=== PATIENT | female | born 1930 | race Caucasian/White ===

== ENCOUNTER → 2018-10-05 | Outpatient (CLI) | payer MEDICARE, OTHER ==
[~2018-10-05] MED LIST: PROP10TA PO; REGADENOSON 0.4 MG/5 ML DISP.SYRIN. IV ONE
--- NOTE | 2018-10-05 10:58 | CARD ---
MR#: [id number] Date of Study: 10/05/2018 Ordering Physician: STAN CORNELIUS, Referring Physician: STAN CORNELIUS Tech: Gloria Mcgrath RDCS APPROVED REPORT EXAM: Two-dimensional and M-mode echocardiogram with Doppler and color Doppler. Other Information Quality : Good INDICATION Chest Pain 2D DIMENSIONS RVDd2.5 (2.9-3.5cm)Left Atrium(2D)4.1 (1.6-4.0cm) IVSd1.2 (0.7-1.1cm)Aortic Root(2D)2.3 (2.0-3.7cm) LVDd4.0 (3.9-5.9cm)LVOT Diameter2.1 (1.8-2.4cm) PWd1.2 (0.7-1.1cm)LVDs2.2 (2.5-4.0cm) FS (%) 30.0 %SV53.9 ml LVEF(%)60.0 (>50%) Aortic Valve AoV Peak Reggie.92.9cm/sAoV VTI20.5cm AO Peak GR.3.5mmHgLVOT Peak Reggie.82.6cm/s LVOT VTI 21.02cmAO Mean GR.2mmHg JOE (VMAX)3.19vg5DMV (VTI)3.46cm2 Mitral Valve MV E Hkvebsqu00.1cm/sMV DECEL [id number] MV A Vvrjrlwc75.8cm/sMV FSQ61wk E/A Ratio0.7MVA (PHT)3.52cm2 TDI E/Medial E'15.6 Tricuspid Valve TR P. Mueuuaip281fv/sRAP YRJRHOBJ5luXl TR Peak Gr.81bsKvCJNI57zuXn Pulmonary Vein S1 Tpwgcvrl00.1cm/sD2 Deudngir41.8cm/s LEFT VENTRICLE The left ventricle is normal size. There is mild concentric left ventricular hypertrophy. The left ve ntricular systolic function is normal. The Ejection Fraction is 55-60%. There is normal LV segmental wall motion. Transmitral Doppler flow pattern is Grade I-abnormal relaxation pattern. RIGHT VENTRICLE The right ventricle is normal size. The right ventricular systolic function is normal. ATRIA The left atrium is mildly dilated. The right atrium size is normal. The interatrial septum is intact with no evidence for an atrial septal defect or patent foramen ovale as noted on 2-D or Doppler imagi ng. AORTIC VALVE The aortic valve is calcified but opens well. Doppler and Color Flow revealed no significant aortic r egurgitation. There is no significant aortic valvular stenosis. MITRAL VALVE The mitral valve is calcified but opens well. There is no evidence of mitral valve prolapse. There is no mitral valve stenosis. Doppler and Color-flow revealed mild mitral regurgitation. TRICUSPID VALVE The tricuspid valve is normal in structure and function. Doppler and Color Flow revealed mild tricusp id regurgitation. There is mild pulmonary hypertension. The PA pressure was estimated at 35 mmHg. The re is no tricuspid valve stenosis. PULMONIC VALVE The pulmonic valve is not well visualized. Doppler and Color Flow revealed mild pulmonic valvular reg urgitation. There is no pulmonic valvular stenosis. GREAT VESSELS The aortic root is normal in size. The ascending aorta is normal in size. The IVC is normal in size a nd collapses >50% with inspiration. PERICARDIAL EFFUSION There is no evidence of significant pericardial effusion. Critical Notification Critical Value: No <Conclusion> The left ventricular systolic function is normal. The Ejection Fraction is 55-60%. There is normal LV segmental wall motion. Transmitral Doppler flow pattern is Grade I-abnormal relaxation pattern. Mild mitral regurgitation. Mild tricuspid regurgitation. The PA pressure was estimated at 35 mmHg. There is no evidence of significant pericardial effusion. Signed by : Stan Cornelius, Electronically Approved : 10/05/2018 10:58:16
--- NOTE | 2018-10-05 13:37 | RAD ---
MR#: [id number] Date of Study: 10/05/2018 Ordering Physician: STAN CORNELIUS, Referring Physician: VÍCTOR LACY Tech: BJ Calles ARRT (R) (N) APPROVED REPORT Test Type: Pharmacological Stress Nurse/Tech: KARY Braun Test Indications: chest pain Cardiac History: HTN Medications: See Electronic Medical Record Medical History: See Electronic Medical Record Resting ECG: SR BBB Resting Heart Rate: 61 bpm Resting Blood Pressure: 174/69mmHg Pretest Chest Pain: None Nurse/Tech Notes Lungs CTA, S1S2 Consent: The procedure was explained to the patient in lay terms. Informed consent was witnessed. Rubens eout was entered into [employer]. History and Stress Test performed by Miguel Montesinos RN Pharm. Details Pharmacologic stress testing was performed using 0.4mg per 5ml of regadenoson given intravenously ove r 7-10 seconds. Stress Symptoms No chest pain or symptoms. POST EXERCISE Reason for Termination: Infusion complete Max HR: 142 bpm Max Blood Pressure: 186/77mmHg Blood Pressure response to exercise: Normal blood pressure response during stress. Heart Rate response to exercise: normal response Chest Pain: No. Arrhythmia: No. ST Change: No. INTERPRETATION Stress EKG Conclusion: Baseline EKG showed sinus rhythm with LBBB. No ischemic changes at peak stres s. No arrhythmias. Imaging Protocol IMAGE PROTOCOL: Rest Tc-99m/stress Tc-99m 1 day Rest: Stress: Viability: Radiopharm.Tc99m AkmkocghjTj83o Sestamibi Wnog52tGc 33mCi Img Date 10/05/2018 10/05/2018 Rest Admin Site:IV - Right AntecubitalAdministrator:BJ Calles ARRT (R)(N) Stress Admin Site: IV - Right AntecubitalAdministrator: RT Arnie (R)(N) STRESS DATA End Diast. Vol.46.0mlLVEDV index BSA28.0ml End Syst. Vol.10.0mlLVESV index BSA6.0ml Myocardial Mass94.0gEject. Awassqvj39.0% Stress Scores Regional WT1.00Summed WT9.00 Regional WM0.00Summed WM1.00 Study quality was good. Left Ventricular size was Normal at Rest and Stress. Lung uptake was . Left Ventricular ejection fraction is 72%. The rest and stress images show normal perfusion, normal contraction and thickening. LV Perf. Quant 17 Seg. SSS5.00 17 Seg. SRS0.00 17 Seg. SDS5.00 Stress Defect Extent (% LAD)0.00Rest Defect Extent (% LAD)0.00Rev. Defect Extent (% LAD)0.00 Stress Defect Extent (% LCX) 53.80Rest Defect Extent (% LCX)6.30Rev. Defect Extent (% LCX)53.80 Stress Defect Extent (% RCA)0.00Rest Defect Extent (% RCA)0.00Rev. Defect Extent (% RCA)0.00 Stress Defect Extent (% RADHA)10.40Rest Defect Extent (% RADHA)1.10Rev. Defect Extent (% RADHA)10.40 Conclusion 1. Regadenoson cardioisotope stress test did not show any evidence of ischemia or infarct. 2. Normal left ventricular systolic function with ejection fraction calculated at 72%. 3. Low risk for cardiac events. Signed by : Stan Cornelius, Electronically Approved : 10/05/2018 13:37:03
== END | disposition home or self-care (01) ==
LOC: NM 10:27
PROVIDERS: ATTEND Internal Medicine Cardiovascular Disease
DX: I08.8 Other rheumatic multiple valve diseases (principal); I70.0 Atherosclerosis of aorta
CPT/HCPCS: 78452; 93017; 93306; 96374; A9500; J2785

== ENCOUNTER 2019-03-24 13:48 | Inpatient (IN) | payer MEDICARE, OTHER ==
[~2019-03-24] VITALS: Ht 152.4 cm; Wt 68.9 kg
[~2019-03-24 13:48] MED LIST changes: +AMLO2.5T5 PO; +CYAN-25 PO; +DOXY100T PO; +FEXO1TAB31 PO; +FLEC50TA PO; +LEVO50TA PO; +LOSA-73 PO; +LOSA100T14 PO; +PROP80CA12 PO; -REGADENOSON 0.4 MG/5 ML DISP.SYRIN. IV ONE; +WARF2.5T71 PO; +WARF3TAB50 PO
--- NOTE | 2019-03-24 14:11 | PHYS DOC ---
Adult General Chief Complaint Chief Complaint: SHORTNESS OF BREATH HPI HPI Patient is a 88 year old presents to the ER with shortness of breath this been ongoing and getting worse for several weeks. The patient states that she was recently admitted to the hospital and discharged on Thursday and diagnosed a pneumonia. The patient states she's also nauseous and has shortness of breath. Patient also states she's been having blood in her sputum. Patient has a history of A. fib and is on warfarin. Review of Systems Review of Systems Constitutional: Denies fever or chills [] Eyes: Denies change in visual acuity, redness, or eye pain [] HENT: Denies nasal congestion or sore throat [] Respiratory: Reports cough and shortness of breath. Also reports coughing up blood. Cardiovascular: No additional information not addressed in HPI [] GI: Denies abdominal pain, nausea, vomiting, bloody stools or diarrhea [] : Denies dysuria or hematuria [] Musculoskeletal: Denies back pain or joint pain [] Integument: Denies rash or skin lesions [] Neurologic: Denies headache, focal weakness or sensory changes [] Endocrine: Denies polyuria or polydipsia [] Complete systems were reviewed and found to be within normal limits, except as documented in this note. Current Medications Current Medications Current Medications Medications (Trade) Dose Ordered Sig/Vannesa Start Time Stop Time Status Last Admin Dose Admin Albuterol/ Ipratropium (Duoneb) 3 ml 1X ONCE 03/24/19 14:15 03/24/19 14:16 DC 03/24/19 14:21 3 ML Info (CONTRAST GIVEN -- Rx MONITORING) 1 each PRN DAILY PRN 03/24/19 16:00 03/26/19 15:59 Iohexol (Omnipaque 350 Mg/ml) 70 ml 1X ONCE 03/24/19 16:00 03/24/19 16:01 Methylprednisolone Sodium Succinate (SOLU-Medrol 125MG VIAL) 62.5 mg 1X ONCE 03/24/19 14:15 03/24/19 14:16 DC 03/24/19 15:17 62.5 MG Ondansetron HCl (Zofran) 4 mg 1X ONCE 03/24/19 14:15 03/24/19 14:16 DC 03/24/19 15:17 4 MG Allergies Allergies Allergies Coded Allergies Type Severity Reaction Last Updated Verified Penicillins Allergy Intermediate 03/19/19 Yes heparin Allergy Intermediate 03/19/19 Yes morphine Allergy Intermediate 03/19/19 Yes Physical Exam Physical Exam Constitutional: Well developed, well nourished, no acute distress, non-toxic appearance. [] HENT: Normocephalic, atraumatic, bilateral external ears normal, oropharynx moist, no oral exudates, nose normal. [] Eyes: PERRLA, EOMI, conjunctiva normal, no discharge. [] Neck: Normal range of motion, no tenderness, supple, no stridor. [] Cardiovascular:Heart rate regular rhythm, no murmur [] Lungs & Thorax: Bilateral breath sounds are diminished and have rhonchi. Abdomen: Bowel sounds normal, soft, no tenderness, no masses, no pulsatile mas ses. [] Skin: Warm, dry, no erythema, no rash. [] Back: No tenderness, no CVA tenderness. [] Extremities: No tenderness, no cyanosis, no clubbing, ROM intact, no edema. [] Neurologic: Alert and oriented X 3, normal motor function, normal sensory function, no focal deficits noted. [] Psychologic: Affect normal, judgement normal, mood normal. [] Current Patient Data Vital Signs Vital Signs Date Time Temp Pulse Resp B/P (MAP) Pulse Ox O2 Delivery O2 Flow Rate FiO2 03/24/19 14:40 92 Nasal Cannula 3.0 03/24/19 14:32 98.1 53 18 136/66 (89) 98.1 Lab Values Laboratory Tests Test 03/24/19 14:38 03/24/19 15:05 O2 Saturation 90 % (92-99) L Arterial Blood pH 7.31 (7.35-7.45) L Arterial Blood pCO2 at Patient Temp 39 mmHg (35-46) Arterial Blood pO2 at Patient Temp 64 mmHg (65-108) L Arterial Blood HCO3 19 mmol/L (21-28) L Arterial Blood Base Excess -6 mmol/L (-3-3) L FiO2 32 White Blood Count 10.5 x10^3/uL (4.0-11.0) Red Blood Count 4.15 x10^6/uL (3.50-5.40) Hemoglobin 13.4 g/dL (12.0-15.5) Hematocrit 39.0 % (36.0-47.0) Mean Corpuscular Volume 94 fL (79-100) Mean Corpuscular Hemoglobin 32 pg (25-35) Mean Corpuscular Hemoglobin Concent 34 g/dL (31-37) Red Cell Distribution Width 14.1 % (11.5-14.5) Platelet Count 213 x10^3/uL (140-400) Neutrophils (%) (Auto) 75 % (31-73) H Lymphocytes (%) (Auto) 19 % (24-48) L Monocytes (%) (Auto) 5 % (0-9) Eosinophils (%) (Auto) 0 % (0-3) Basophils (%) (Auto) 1 % (0-3) Neutrophils # (Auto) 7.9 x10^3/uL (1.8-7.7) H Lymphocytes # (Auto) 2.0 x10^3/uL (1.0-4.8) Monocytes # (Auto) 0.5 x10^3/uL (0.0-1.1) Eosinophils # (Auto) 0.0 x10^3/uL (0.0-0.7) Basophils # (Auto) 0.1 x10^3/uL (0.0-0.2) Prothrombin Time 27.6 SEC (11.7-14.0) H Prothrombin Time INR 2.6 (0.8-1.1) H Activated Partial Thromboplast Time 36 SEC (24-38) D-Dimer (Dina) 0.58 ug/mlFEU (0.00-0.50) H Sodium Level 135 mmol/L (136-145) L Potassium Level 4.7 mmol/L (3.5-5.1) Chloride Level 104 mmol/L (98-107) Carbon Dioxide Level 25 mmol/L (21-32) Anion Gap 6 (6-14) Blood Urea Nitrogen 21 mg/dL (7-20) H Creatinine 1.2 mg/dL (0.6-1.0) H Estimated GFR (Cockcroft-Gault) 42.3 BUN/Creatinine Ratio 18 (6-20) Glucose Level 211 mg/dL (70-99) H Lactic Acid Level 1.6 mmol/L (0.4-2.0) Calcium Level 9.6 mg/dL (8.5-10.1) Magnesium Level 1.8 mg/dL (1.8-2.4) Total Bilirubin 1.2 mg/dL (0.2-1.0) H Aspartate Amino Transferase (AST) 39 U/L (15-37) H Alanine Aminotransferase (ALT) 43 U/L (14-59) Alkaline Phosphatase 74 U/L (46-116) Troponin I Quantitative < 0.017 ng/mL (0.000-0.055) PI-Ykb-Q-Type Natriuretic Peptide 4564 pg/mL (0-449) H Total Protein 7.1 g/dL (6.4-8.2) Albumin 3.1 g/dL (3.4-5.0) L Albumin/Globulin Ratio 0.8 (1.0-1.7) L Laboratory Tests 03/24/19 15:05 Laboratory Tests 03/24/19 15:05 EKG EKG EKG interpreted by Dr. aMdeleine Person with rate of 55, LBBB, left axis deviation. No old ekg's to compare it to.[] Radiology/Procedures Radiology/Procedures [] Course & Med Decision Making Course & Med Decision Making Pertinent Labs and Imaging studies reviewed. (See chart for details) Will get chest x-ray, labs, ABG, EKG, and give breathing treatment. ABG shows Ph of 7.314, Will put on Venturi mask. Discussed case with Dr. Ferrer who saw patient at bedside and accepted admission at 1556. Will give 20 mg of lasix IV on admission. Dragon Disclaimer Dragon Disclaimer This electronic medical record was generated, in whole or in part, using a voice recognition dictation system. Departure Departure Impression: Primary Impression: Shortness of breath Additional Impression: Acute exacerbation of CHF (congestive heart failure) Disposition: 09 ADMITTED INPATIENT Admitting Physician: Baldo Ferrer Condition: GUARDED Referrals: BALDO FERRER MD (PCP) Problem Qualifiers Additional Impression: Acute exacerbation of CHF (congestive heart failure) Heart failure type: unspecified Qualified Codes: I50.9 - Heart failure, unspecified BALDO LOPES MARKETING REPORTING ANALYST Mar 24, 2019 14:11
[2019-03-24] MEDS ORDERED: IPRATRPIUM/ALBUTEROL 0.5/2.5MG 3 ML NEBU. NEB ONE (14:15)
[2019-03-24] MEDS ORDERED: ONDANSETRON PF 4 MG/2 ML VIAL. IV ONE (14:15)
[2019-03-24] MEDS ORDERED: methylPREDNISolone SOD SUCC PF 125 MG/2 ML VIAL. IV ONE (14:15)
--- NOTE | 2019-03-24 14:23 | EKG ---
[facility] [address] [place] [address] Test Date: 2019-03-24 Test Time: 14:16:49 Pat Name: VALENTINO MORA Department: Room: Gender: F Studio Engineer: : [id number] Requested By: RAKEL LOPES Order Number: [id number] Reading MD: Measurements Intervals [place] Rate: 55 P: [place]: QRS: -38 QRSD: 218 T: 106 QT: 554 QTc: 532 Interpretive Statements ATRIAL FIBRILLATION ABNORMAL LEFT AXIS DEVIATION LEFT BUNDLE BRANCH BLOCK ABNORMAL ECG No previous ECG available for comparison
[2019-03-24 14:41] LABS: BASE EXCESS ABG -6 mmol/L (-3-3); HCO3 ABG 19 mmol/L (21-28); PCO2 ABG 39 mmHg (35-46); PO2 ABG 64 mmHg (65-108); SAT O2 ABG 90 % (92-99)
[2019-03-24 14:42] LABS: FIO2 ABG 32
[2019-03-24 15:13] LABS: BASO # 0.1 x10^3/uL (0.0-0.2); BASO % 1 % (0-3); EOS % 0 % (0-3); HEMOGLOBIN 13.4 g/dL (12.0-15.5); LYMPH % 19 % (24-48); MEAN CORPUSCULAR HEMOGLOBIN 32 pg (25-35); MEAN CORPUSCULAR HGB CONC 34 g/dL (31-37); MEAN CORPUSCULAR VOLUME 94 fL (79-100); MONO # 0.5 x10^3/uL (0.0-1.1); MONO % 5 % (0-9); NEUT # 7.9 x10^3/uL (1.8-7.7); NEUT % 75 % (31-73); PLATELET COUNT 213 x10^3/uL (140-400); RED BLOOD COUNT 4.15 x10^6/uL (3.50-5.40); RED CELL DISTRIBUTION WIDTH 14.1 % (11.5-14.5); WHITE BLOOD COUNT 10.5 x10^3/uL (4.0-11.0)
[2019-03-24 15:25] LABS: CALCIUM 9.6 mg/dL (8.5-10.1); CREATININE 1.2 mg/dL (0.6-1.0); GFR 42.3; POTASSIUM 4.7 mmol/L (3.5-5.1)
[2019-03-24 15:26] LABS: PROTHROMBIN TIME PATIENT 27.6 SEC (11.7-14.0)
[2019-03-24 15:30] LABS: D-DIMER 0.58 ug/mlFEU (0.00-0.50)
[2019-03-24 15:31] LABS: ALBUMIN 3.1 g/dL (3.4-5.0); ALBUMIN/GLOBULIN RATIO 0.8 (1.0-1.7); TOTAL BILIRUBIN 1.2 mg/dL (0.2-1.0); TOTAL PROTEIN 7.1 g/dL (6.4-8.2)
--- NOTE | 2019-03-24 15:42 | RAD ---
PORTABLE CHEST 1V History: Shortness of breath Comparison: March 18, 2019 Findings: Low lung volumes with patchy bibasilar opacities. Mild interstitial thickening. Small bilateral pleural effusions. No pneumothorax. Unchanged heart size. Impression: 1. Small bilateral pleural effusions. 2. Increased mild interstitial thickening and basilar opacities, may indicate early pulmonary edema. Electronically signed by: Kevin Lundberg DO (03/24/2019 3:39 PM) [id number]
[2019-03-24] MEDS ORDERED: FUROSEMIDE 20 MG/2 ML VIAL. IVP ONE (16:00)
[2019-03-24] MEDS ORDERED: CONTRAST GIVEN. MC PRN (16:00)
[2019-03-24] MEDS ORDERED: IOHEXOL 350 MG/ML 100 ML VIAL. IV ONE (16:00)
[2019-03-24] MEDS ORDERED: ACETAMINOPHEN 325 MG TABLET. PO PRN (16:30)
--- NOTE | 2019-03-24 16:30 | RAD ---
Examination: CT angiography chest HISTORY: History of elevated d-dimer, hemoptysis COMPARISON: CT of chest without contrast from 03/19/2019 TECHNIQUE: Axial CT and radiographic images of chest were performed with IV contrast. Coronal and sagittal 3-D MIP reformats are performed Exposure: One or more of the following individualized dose reduction techniques were utilized for this examination: 1. Automated exposure control 2. Adjustment of the mA and/or kV according to patient size 3. Use of iterative reconstruction technique FINDINGS: The central airways are patent. Mild cardiomegaly. Moderate aortic atherosclerosis No evidence of filling defect identified in the main pulmonary arterial trunk and right and left main pulmonary arteries and the visualized lobar branches of the pulmonary arteries. There is a distal segmental branches of the pulmonary arteries is limited. Bilateral pleural effusions , right greater than left. Patchy bilateral lung airspace opacities likely atelectasis or infiltrates. Mild prominent bilateral hilar lymph nodes. There is extension of contrast into the IVC and hepatic veins. The visualized liver, spleen, adrenals grossly appears unremarkable. Moderate degenerative changes thoracic spine. IMPRESSION: 1. No evidence of central pulmonary embolism. The evaluation of the distal segmental branches of the pulmonary arteries is limited. 2. Bilateral pleural effusions , right greater than left, with patchy airspace opacities bilateral airspace opacities likely atelectasis or infiltrates. Mild congestive changes. 3. Mild bilateral hilar lymph nodes probably reactive. Electronically signed by: Nicho York MD (03/24/2019 4:27 PM) [place] [id number]
--- NOTE | 2019-03-24 16:43 | PDOC ---
Provider Note Provider Note history and physical dictated # [id number] RAKEL CENTENO MD Mar 24, 2019 16:43
[2019-03-24] MEDS ORDERED: ONDANSETRON ODT 4 MG TAB.RAPDIS. PO PRN (16:45)
[2019-03-24] MEDS ORDERED: WARFARIN 2.5 MG TABLET. PO SCH (17:00)
[2019-03-24] MEDS: IPRATRPIUM/ALBUTEROL 0.5/2.5MG 3 ML NEBU. NEB SCH ×2 (17:00→19:56)
[2019-03-24 18:00] VITALS: BP 140/72
[2019-03-24 18:21] LABS: BILIRUBIN,URINE NEGATIVE (NEG); CLARITY,URINE CLEAR; COLOR,URINE YELLOW; NITRITE,URINE NEGATIVE (NEG); PROTEIN,URINE NEGATIVE (NEG-TRACE); UROBILINOGEN,URINE 0.2 mg/dL (0.2 mg/dL)
[2019-03-24 18:25] LABS: BACTERIA,URINE 0 /HPF (0-FEW); RBC,URINE 0 /HPF (0-2); WBC,URINE 0 /HPF (0-4)
--- NOTE | 2019-03-24 18:56 | HP ---
ADMIT DATE: 03/24/2019 HISTORY OF PRESENT ILLNESS: The patient is an 88-year-old white female, who was recently dismissed from [facility] on 03/20/2019 with paroxysmal atrial fibrillation with intermittent rapid ventricular response converted to normal sinus rhythm and also had mycoplasma pneumoniae with a history of a pulmonary embolus, on chronic Coumadin therapy, in the setting of factor V Leiden mutation, who has hypertension, hypothyroidism, and history of Graves' disease, treated with radioactive iodine in the past, who notes some shortness of breath with exertion and nausea. She has been short of breath for several weeks with exertion. She was just recently diagnosed with mycoplasma pneumoniae and was treated with doxycycline. She also was started on flecainide for the paroxysmal atrial fibrillation. She was seen in the emergency room today and a chest x-ray showed possible congestive heart failure, and she was given 20 mg of Lasix intravenously. A CAT scan and a chest angiogram have been ordered as she has had a couple of pulmonary emboli in the past, although this has been several years since she has had one and INR has been therapeutic at 2.6 on her Coumadin. She was also given a nebulizer treatment in the emergency room and also 62.5 mg of intravenous Solu-Medrol and Zofran 4 mg intravenously x1 and subsequently admitted to the hospital for further evaluation and treatment. ALLERGIES AND INTOLERANCES: INCLUDE PENICILLIN, HEPARIN, AND MORPHINE. MEDICATIONS: Prior to admission include Coumadin 3 mg 1 day and 2.5 mg the next day, amlodipine 2.5 mg every day, losartan 50 mg every day, propranolol extended release 80 mg every day, levothyroxine 50 mcg every day, vitamin B12 1000 mcg every day, flecainide 100 mg p.o. every 12 hours, doxycycline 100 mg every 12 hours. PAST MEDICAL/SURGICAL HISTORY: Significant for the hospitalization earlier this month at [facility] for paroxysmal atrial fibrillation with a rapid ventricular response, converted to normal sinus rhythm; mycoplasma pneumoniae; history of a pulmonary embolus, on chronic Coumadin therapy; Factor V Leiden mutation; hypertension; hypothyroidism; history of Graves' disease, treated with radioactive iodine. She also has a history of a total abdominal hysterectomy, bilateral salpingo-oophorectomy, tonsillectomy, lumbar spondylosis. She has a history of hyperlipidemia and migraine headaches. After her radioactive iodine surgery, she has hypothyroidism. SOCIAL HISTORY: She does not drink alcohol nor does she smoke cigarettes. FAMILY HISTORY: Mother had chronic obstructive pulmonary disease. REVIEW OF SYSTEMS: GENERAL: She denies any fever, chills, or sweats. CARDIOVASCULAR: No chest pain. PULMONARY: She has got some shortness of breath. ENDOCRINE: No diabetes mellitus. SKIN: No rashes. NEUROLOGIC: No focal weakness. GASTROINTESTINAL: She has some nausea. The rest of systems reviewed are negative except as stated in the history of present illness. PHYSICAL EXAMINATION: VITAL SIGNS: Temperature is 98.1 degrees, pulse is 62 and sinus rhythm, respiratory rate 18, blood pressure is 136/66, and oxygen saturation 92% on 3 liters per nasal cannula. She apparently was saturating in the 80s on room air when she arrived to the emergency room per the emergency room doctor. HEENT: Eyes: Gaze is conjugate. Mouth: Tongue is midline. NECK: There is no cervical lymphadenopathy or thyroid enlargement. HEART: Reveals an S1, S2. There is no S3 or murmur. LUNGS: Reveal some crackles in the bases. ABDOMEN: Soft, nontender. EXTREMITIES: Lower extremities without edema. SKIN: No rashes. NEUROLOGIC: Revealed no focal weakness of the extremities or facial asymmetry. She is coherent. LABORATORY DATA: Review of her laboratory test: White count 10.5, hemoglobin 13.4, platelet count was 213,000; 75 polys and 19 lymphocytes. Arterial blood gas showed pH of 7.31, pCO2 of 39, and pO2 of 64, and that was on 3 liters of oxygen per nasal cannula. INR was 2.6. D-dimer was 0.58. Sodium 135, potassium 4.7, chloride 104, total CO2 of 25, BUN 21, creatinine 1.2, blood sugar was 211, and the total bilirubin is 1.2. Other liver tests were normal. ProBNP was 4564, albumin 3.1. Lactic acid was 1.6 with magnesium 1.8. IMAGING: She had a chest x-ray done, which showed small bilateral pleural effusions and increased mild interstitial thickening, possibly indicating early pulmonary edema. She had an electrocardiogram done. EKG looks like atrial fibrillation with left axis deviation and left bundle-branch block pattern. When I was in the room, it looked more like sinus rhythm. She had some baseline wander. ASSESSMENT: 1. Acute hypoxic respiratory failure. 2. Suspect acute congestive heart failure. 3. Mycoplasma pneumoniae. 4. Paroxysmal atrial fibrillation, on Coumadin. 5. History of pulmonary embolus, on Coumadin. 6. Factor V Leiden mutation. 7. Some nausea. 8. Hypertension. PLAN: At this time is to consult Dr. Flores for Pulmonary, Dr. Gruber for Cardiology, and I discussed the case briefly with Dr. Gruber today. We will continue with her home medications. She was given 20 mg of Lasix intravenously x1 in the emergency room. CAT scan and chest angiogram have been ordered, and I also ordered an echocardiogram. We will decrease the Coumadin to 2.5 mg every day, discontinue the propranolol, instead put her on metoprolol 25 mg p.o. b.i.d., put her on DuoNeb nebulizer treatments, budesonide nebulizer treatments, and Solu-Medrol, and continue the doxycycline. We will continue with amlodipine and losartan for hypertension, levothyroxine for hypothyroidism, Zofran p.r.n. for nausea, and I will check a CBC, BMP, and protime tomorrow and order some physical and occupational therapy, and place her on telemetry. As mentioned, continue the doxycycline. We will also continue her oxygen. RAKEL CENTENO MD DR: ZAIRA/roldan JOB#: [id number] / [id number]
[2019-03-24 19:38] VITALS: BP 169/75
[2019-03-24] MEDS: BUDESONIDE 0.5 MG/2 ML NEBU. NEB SCH (19:57)
[2019-03-24] MEDS: FLECAINIDE ACETATE 50 MG TABLET. PO SCH (21:35)
[2019-03-24] MEDS: methylPREDNISolone SOD SUCC PF 40 MG/ML VIAL. IV SCH (21:36)
[2019-03-24] MEDS: METOPROLOL TART IMMED RELEASE 25 MG TABLET. PO SCH (21:36)
[2019-03-24] MEDS: DOXYCYCLINE HYCLATE 100 MG TABLET PO SCH (21:36)
[2019-03-24 23:00] VITALS: BP 141/70
[2019-03-25 03:00] VITALS: BP 123/79
[2019-03-25 05:19] LABS: BASO % 0 % (0-3); EOS % 0 % (0-3); HEMATOCRIT 37.4 % (36.0-47.0); HEMOGLOBIN 12.8 g/dL (12.0-15.5); LYMPH # 1.4 x10^3/uL (1.0-4.8); LYMPH % 20 % (24-48); MEAN CORPUSCULAR HEMOGLOBIN 32 pg (25-35); MEAN CORPUSCULAR HGB CONC 34 g/dL (31-37); MEAN CORPUSCULAR VOLUME 93 fL (79-100); MONO # 0.1 x10^3/uL (0.0-1.1); MONO % 1 % (0-9); NEUT # 5.5 x10^3/uL (1.8-7.7); NEUT % 79 % (31-73); PLATELET COUNT 175 x10^3/uL (140-400); RED BLOOD COUNT 4.02 x10^6/uL (3.50-5.40); RED CELL DISTRIBUTION WIDTH 14.7 % (11.5-14.5)
[2019-03-25 05:46] LABS: CALCIUM 9.5 mg/dL (8.5-10.1); CREATININE 1.2 mg/dL (0.6-1.0); GFR 42.3; POTASSIUM 3.9 mmol/L (3.5-5.1)
[2019-03-25] MEDS: LEVOTHYROXINE 50 MCG TABLET PO SCH (06:26)
[2019-03-25 07:14] VITALS: BP 155/77
[2019-03-25] MEDS: BUDESONIDE 0.5 MG/2 ML NEBU. NEB SCH ×2 (07:19→20:29)
[2019-03-25] MEDS: IPRATRPIUM/ALBUTEROL 0.5/2.5MG 3 ML NEBU. NEB SCH ×4 (07:19→20:29)
--- NOTE | 2019-03-25 08:38 | PDOC2 ---
TARI LOVELACE VENEER TRIMMER 03/25/19 0838: CARDIAC CONSULT DATE OF CONSULT Date of Consult DATE: 03/25/19 TIME: 08:35 REASON FOR CONSULT Reason for Consult: PAFIB, SWAN REFERRING PHYSICIAN Referring Physician: Carissa SOURCE Source: Chart review, Patient HISTORY OF PRESENT ILLNESS HISTORY OF PRESENT ILLNESS This is a pleasant 88 yo female admitted for complains of shortness of breath. She was just discharged recently and at home she gradually started having more and more SOA. Sometimes she felt that her HR slows down and sometimes it flutters. Also has been having bouts of nausea and vomiting with complains of upper back pain mainly to left side. No falls, passing out or any injuries. No fever or chills. No anterior chest pain. She recently had new onset AFIB and also was treated with atypical PNA. She is now here and noted with CHF. PAST MEDICAL HISTORY Past Medical History Recurrent PE Factor V Leyden mutation Hypertension Hypothyroidism Migraine Graves' disease treated with radioactive iodine Diverticulosis B12 deficiency PAFIB PAST SURGICAL HISTORY Past Surgical History Hysterectomy Tonsillectomy FAMILY HISTORY Family History: Hypertension SOCIAL HISTORY Smoke: No ALCOHOL: none Drugs: None Lives: with Family CURRENT MEDICATIONS CURRENT MEDICATIONS Current Medications Medications (Trade) Dose Ordered Sig/Vannesa Route PRN Reason Start Time Stop Time Status Last Admin Dose Admin Albuterol/ Ipratropium (Duoneb) 3 ml 1X ONCE NEB 03/24/19 14:15 03/24/19 14:16 DC 03/24/19 14:21 Methylprednisolone Sodium Succinate (SOLU-Medrol 125MG VIAL) 62.5 mg 1X ONCE IV 03/24/19 14:15 03/24/19 14:16 DC 03/24/19 15:17 Ondansetron HCl (Zofran) 4 mg 1X ONCE IV 03/24/19 14:15 03/24/19 14:16 DC 03/24/19 15:17 Iohexol (Omnipaque 350 Mg/ml) 70 ml 1X ONCE IV 03/24/19 16:00 03/24/19 16:01 DC 03/24/19 16:00 Furosemide (Lasix) 20 mg 1X ONCE IVP 03/24/19 16:00 03/24/19 16:01 DC 03/24/19 16:26 Doxycycline Hyclate (Vibra-Tab) 100 mg BID PO 03/24/19 21:00 03/24/19 21:36 Budesonide (Pulmicort) 0.5 mg RTBID NEB 03/24/19 20:00 03/25/19 07:19 Albuterol/ Ipratropium (Duoneb) 3 ml RTQID NEB 03/24/19 17:00 03/25/19 07:19 Flecainide Acetate (Tambocor) 100 mg Q12HR PO 03/24/19 21:00 03/24/19 21:36 Warfarin Sodium (Coumadin) 2.5 mg DAILY16 PO 03/24/19 17:00 03/24/19 18:33 Methylprednisolone Sodium Succinate (SOLU-Medrol 40MG VIAL) 40 mg Q12HR IV 03/24/19 21:00 03/24/19 21:36 Levothyroxine Sodium (Synthroid) 50 mcg DAILY06 PO 03/25/19 06:00 03/25/19 06:26 Metoprolol Tartrate (Lopressor) 25 mg BID PO 03/24/19 21:00 03/24/19 21:36 ALLERGIES ALLERGIES: Coded Allergies: Penicillins (Verified Allergy, Intermediate, 03/19/19) heparin (Verified Allergy, Intermediate, 03/19/19) levofloxacin (Verified Allergy, Intermediate, 03/24/19) morphine (Verified Allergy, Intermediate, 03/19/19) ROS Review of System 14 point ROS evaluated with pertinent positives noted per HPI PHYSICAL EXAM General: Alert, Oriented X3, Cooperative, mild distress HEENT: Atraumatic, Mucous membr. moist/pink Lungs: Other (basilar crackles) Heart: Regular rate (SR with LBBB), Other (2/6 systolic murmur to LLS border) Abdomen: Soft, No tenderness Extremities: No cyanosis, Other (1+ bilateral LE pitting edema) Skin: No breakdown, No significant lesion Neuro: Normal speech, Sensation intact Psych/Mental Status: Mental status NL, Mood NL MUSCULOSKELETAL: Osteoarthritic changes both hands VITALS/I&O VITALS/I&O: Vital Signs Date Time Temp Pulse Resp B/P (MAP) Pulse Ox O2 Delivery O2 Flow Rate FiO2 03/25/19 07:22 96 Venturi Mask 6.0 03/25/19 07:14 97.5 59 24 155/77 (103) 97.5 I & O 03/24/19 03/24/19 03/25/19 14:59 22:59 06:59 Output Total 550 ml 0 ml Balance -550 ml 0 ml LABS Lab: Laboratory Tests Test 03/24/19 14:38 03/24/19 15:05 03/24/19 18:00 03/25/19 04:30 O2 Saturation 90 % (92-99) L Arterial Blood pH 7.31 (7.35-7.45) L Arterial Blood pCO2 at Patient Temp 39 mmHg (35-46) Arterial Blood pO2 at Patient Temp 64 mmHg (65-108) L Arterial Blood HCO3 19 mmol/L (21-28) L Arterial Blood Base Excess -6 mmol/L (-3-3) L FiO2 32 White Blood Count 10.5 x10^3/uL (4.0-11.0) 7.0 x10^3/uL (4.0-11.0) Red Blood Count 4.15 x10^6/uL (3.50-5.40) 4.02 x10^6/uL (3.50-5.40) Hemoglobin 13.4 g/dL (12.0-15.5) 12.8 g/dL (12.0-15.5) Hematocrit 39.0 % (36.0-47.0) 37.4 % (36.0-47.0) Mean Corpuscular Volume 94 fL (79-100) 93 fL (79-100) Mean Corpuscular Hemoglobin 32 pg (25-35) 32 pg (25-35) Mean Corpuscular Hemoglobin Concent 34 g/dL (31-37) 34 g/dL (31-37) Red Cell Distribution Width 14.1 % (11.5-14.5) 14.7 % (11.5-14.5) H Platelet Count 213 x10^3/uL (140-400) 175 x10^3/uL (140-400) Neutrophils (%) (Auto) 75 % (31-73) H 79 % (31-73) H Lymphocytes (%) (Auto) 19 % (24-48) L 20 % (24-48) L Monocytes (%) (Auto) 5 % (0-9) 1 % (0-9) Eosinophils (%) (Auto) 0 % (0-3) 0 % (0-3) Basophils (%) (Auto) 1 % (0-3) 0 % (0-3) Neutrophils # (Auto) 7.9 x10^3/uL (1.8-7.7) H 5.5 x10^3/uL (1.8-7.7) Lymphocytes # (Auto) 2.0 x10^3/uL (1.0-4.8) 1.4 x10^3/uL (1.0-4.8) Monocytes # (Auto) 0.5 x10^3/uL (0.0-1.1) 0.1 x10^3/uL (0.0-1.1) Eosinophils # (Auto) 0.0 x10^3/uL (0.0-0.7) 0.0 x10^3/uL (0.0-0.7) Basophils # (Auto) 0.1 x10^3/uL (0.0-0.2) 0.0 x10^3/uL (0.0-0.2) Prothrombin Time 27.6 SEC (11.7-14.0) H Prothrombin Time INR 2.6 (0.8-1.1) H Activated Partial Thromboplast Time 36 SEC (24-38) D-Dimer (Dina) 0.58 ug/mlFEU (0.00-0.50) H Sodium Level 135 mmol/L (136-145) L 138 mmol/L (136-145) Potassium Level 4.7 mmol/L (3.5-5.1) 3.9 mmol/L (3.5-5.1) Chloride Level 104 mmol/L (98-107) 102 mmol/L (98-107) Carbon Dioxide Level 25 mmol/L (21-32) 27 mmol/L (21-32) Anion Gap 6 (6-14) 9 (6-14) Blood Urea Nitrogen 21 mg/dL (7-20) H 24 mg/dL (7-20) H Creatinine 1.2 mg/dL (0.6-1.0) H 1.2 mg/dL (0.6-1.0) H Estimated GFR (Cockcroft-Gault) 42.3 42.3 BUN/Creatinine Ratio 18 (6-20) Glucose Level 211 mg/dL (70-99) H 149 mg/dL (70-99) H Lactic Acid Level 1.6 mmol/L (0.4-2.0) Calcium Level 9.6 mg/dL (8.5-10.1) 9.5 mg/dL (8.5-10.1) Magnesium Level 1.8 mg/dL (1.8-2.4) Total Bilirubin 1.2 mg/dL (0.2-1.0) H Aspartate Amino Transferase (AST) 39 U/L (15-37) H Alanine Aminotransferase (ALT) 43 U/L (14-59) Alkaline Phosphatase 74 U/L (46-116) Troponin I Quantitative < 0.017 ng/mL (0.000-0.055) SV-Ttv-R-Type Natriuretic Peptide 4564 pg/mL (0-449) H Total Protein 7.1 g/dL (6.4-8.2) Albumin 3.1 g/dL (3.4-5.0) L Albumin/Globulin Ratio 0.8 (1.0-1.7) L Urine Collection Type Unknown Urine Color Yellow Urine Clarity Clear Urine pH 5.0 Urine Specific [place] 1.015 Urine Protein Negative mg/dL (NEG-TRACE) Urine Glucose (UA) Negative mg/dL (NEG) Urine Ketones (Stick) Negative mg/dL (NEG) Urine Blood Negative (NEG) Urine Nitrite Negative (NEG) Urine Bilirubin Negative (NEG) Urine Urobilinogen Dipstick 0.2 mg/dL (0.2 mg/dL) Urine Leukocyte Esterase Negative (NEG) Urine RBC 0 /HPF (0-2) Urine WBC 0 /HPF (0-4) Urine Bacteria 0 /HPF (0-FEW) Laboratory Tests 03/24/19 15:05 03/25/19 04:30 Laboratory Tests 03/24/19 15:05 03/25/19 04:30 IMAGES IMAGES IMPRESSION: CTA 1. No evidence of central pulmonary embolism. The evaluation of the distal segmental branches of the pulmonary arteries is limited. 2. Bilateral pleural effusions , right greater than left, with patchy airspace opacities bilateral airspace opacities likely atelectasis or infiltrates. Mild congestive changes. 3. Mild bilateral hilar lymph nodes probably reactive. \ DATE: 03/24/191626 ECHOCARDIOGRAM ECHOCARDIOGRAM <Conclusion> The left ventricular systolic function is normal. The Ejection Fraction is 55-60%. There is normal LV segmental wall motion. Transmitral Doppler flow pattern is Grade I-abnormal relaxation pattern. Mild mitral regurgitation. Mild tricuspid regurgitation. The PA pressure was estimated at 35 mmHg. There is no evidence of significant pericardial effusion. DATE: 10/05/18 1058 STRESS TEST STRESS TEST Conclusion 1. Regadenoson cardioisotope stress test did not show any evidence of ischemia or infarct. 2. Normal left ventricular systolic function with ejection fraction calculated at 72%. 3. Low risk for cardiac events. DATE: 10/05/18 1337 ASSESSMENT/PLAN ASSESSMENT/PLAN 1. Acute on chronic diastolic CHF 2. Recent Atypical PNA 3. 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 PAFIB: possibly bursts at home 5. HTN: controlled 6. HLP 7. CAD: coronary calcifications per CT. Recommendations. 1. Normal MPI 10/2018 with preserved EF. Given her S/S, new arrhythmia with noted coronary calcifications and refratory CHF despite optimization, will need to rule out underlying ischemia. INR currently at 2.5. Will hold coumadin. Discussed with daughters and pt, risks and benefits including risk for JARET and agreeable to proceed. 2. DC flecainide, not advisable with CAD.. Will reeval antiarrhythmic regimen post LHC, Unable to start amiodarone currently with QTc at 530. 3. Continue secondary prevention measures. ASA/Statin/BB/ARB 4. Lasix therapy. STAN CORNELIUS MD 03/25/19 1539: CARDIAC CONSULT ASSESSMENT/PLAN ASSESSMENT/PLAN Patient seen and examined. Agree with TIE MAKER's assessment and plan. Continue diuresis for acute on chronic diastolic heart failure 2-D echo showed normal LV systolic function PAF presently in sinus rhythm Agree with stopping flecainide Plan for cardiac catheterization possibly Thursday. Hold Coumadin for now Thank you for your consultation TARI LOVELACE APRN Mar 25, 2019 08:38 STAN CORNELIUS MD Mar 25, 2019 15:39
--- NOTE | 2019-03-25 09:25 | CARD ---
MR#: [id number] Date of Study: 03/25/2019 Ordering Physician: RAKEL CENTENO, Referring Physician: RAKEL CENTENO, Tech: Mami Welsh RDCS APPROVED REPORT EXAM: LIMITED Two-dimensional and M-mode echocardiogram. Other Information Quality : AverageHR: 60bpm Rhythm : NSR INDICATION Atrial Fibrillation 2D DIMENSIONS Left Atrium(2D)3.7 (1.6-4.0cm)IVSd1.3 (0.7-1.1cm) Aortic Root(2D)2.9 (2.0-3.7cm)LVDd4.4 (3.9-5.9cm) PWd1.3 (0.7-1.1cm)LVDs3.1 (2.5-4.0cm) FS (%) 30.2 %SV50.2 ml LVEF(%)55.0 (>50%) Tricuspid Valve TR P. [id number] TR Peak [id number] LEFT VENTRICLE The left ventricle is normal size. There is mild concentric left ventricular hypertrophy. The left ve ntricular systolic function is normal. The Ejection Fraction is 55-60%. There is normal LV segmental wall motion. RIGHT VENTRICLE The right ventricle is normal size. There is normal right ventricular wall thickness. The right ventr icular systolic function is normal. ATRIA The left atrium size is normal. The right atrium size is normal. The interatrial septum is intact wit h no evidence for an atrial septal defect or patent foramen ovale as noted on 2-D or Doppler imaging. AORTIC VALVE The aortic valve is normal in structure and function. The aortic valve is trileaflet. MITRAL VALVE The mitral valve is normal in structure and function. There is no evidence of mitral valve prolapse. TRICUSPID VALVE The tricuspid valve is normal in structure and function. Doppler and Color Flow revealed mild tricusp id regurgitation. The PA pressure was estimated at 57 mmHg. There is no tricuspid valve prolapse or v egetation. There is no tricuspid valve stenosis. PULMONIC VALVE The pulmonic valve is not well visualized. GREAT VESSELS The aortic root is normal in size. The ascending aorta is normal in size. The IVC is normal in size a nd collapses >50% with inspiration. PERICARDIAL EFFUSION There is no evidence of significant pericardial effusion. Critical Notification Critical Value: No <Conclusion> The left ventricular systolic function is normal. The Ejection Fraction is 55-60%. There is normal LV segmental wall motion. Doppler and Color Flow revealed mild tricuspid regurgitation. The PA pressure was estimated at 57 mmHg. There is no evidence of significant pericardial effusion. Signed by : Edward Gruber, Electronically Approved : 03/25/2019 09:24:25
[2019-03-25] MEDS: FLECAINIDE ACETATE 50 MG TABLET. PO SCH (09:27)
[2019-03-25] MEDS: CYANOCOBALAMIN (VITAMIN B-12) 1,000 MCG TABLET. PO SCH (09:27)
[2019-03-25] MEDS: methylPREDNISolone SOD SUCC PF 40 MG/ML VIAL. IV SCH ×2 (09:27→21:00)
[2019-03-25] MEDS: amLODIPine BESYLATE 5 MG TABLET PO SCH (09:28)
[2019-03-25] MEDS: LOSARTAN POTASSIUM 50 MG TABLET. PO SCH (09:29)
[2019-03-25] MEDS: DOXYCYCLINE HYCLATE 100 MG TABLET PO SCH ×2 (09:29→20:59)
[2019-03-25] MEDS: METOPROLOL TART IMMED RELEASE 25 MG TABLET. PO SCH ×2 (09:29→20:59)
[2019-03-25] MEDS: FUROSEMIDE 40 MG/4 ML VIAL. IVP SCH (09:32)
[2019-03-25 10:11] LABS: CHOLESTEROL/HDL RATIO 4.9
[2019-03-25 10:19] VITALS: BP 131/71
[2019-03-25 10:23] LABS: PROTHROMBIN TIME PATIENT 26.7 SEC (11.7-14.0)
--- NOTE | 2019-03-25 10:25 | CONS ---
DATE OF CONSULTATION: PULMONARY CONSULTATION ATTENDING PHYSICIAN: Baldo Ferrer MD REASON FOR CONSULTATION: Dyspnea and hypoxia. HISTORY OF PRESENT ILLNESS: The patient is 88 years old who has no significant tobacco history. She was hospitalized and recently discharged after being treated for mycoplasma pneumonia. The patient also has history of pulmonary embolism and has been on chronic Coumadin treatment. She has history of Factor V Leiden mutation. She states that she felt better when she went home. However, a few days later, she started to have some shortness of breath. She felt weak as well. She also has a cough, which has been nonproductive. No chest pain, no headache, no nausea, vomiting, no diarrhea. No dysuria, no focal weakness. CT angiogram was performed, which was reviewed by me. The patient has no evidence of pulmonary embolism. There are bilateral pleural effusions, more on the right than on the left. There are interstitial infiltrates, more compatible with congestive heart failure. She had an echocardiogram done as well, which showed a normal ejection fraction and PA pressure of 57. I have been asked to see her for further evaluation. PAST MEDICAL HISTORY: Significant for history of recent hospitalization for mycoplasma pneumonia, history of paroxysmal atrial fibrillation with rapid ventricular response, history of pulmonary embolism, is on chronic Coumadin therapy, history of factor V Leiden mutation, hypertension, hypothyroidism, history of Graves' disease, treated with radioactive iodine. PAST SURGICAL HISTORY: Total abdominal hysterectomy, bilateral salpingo-oophorectomy, tonsillectomy, lumbar spondylolysis. SOCIAL HISTORY: Does not smoke and does not drink. FAMILY HISTORY: Mother had COPD. REVIEW OF SYSTEMS: Twelve-point system obtained. Pertinent positives discussed in my history of present illness, otherwise noncontributory. All systems that were negative were reviewed as well. ALLERGIES: PENICILLIN, HEPARIN, LEVOFLOXACIN, AND MORPHINE. PHYSICAL EXAMINATION: VITAL SIGNS: Reviewed. Afebrile, blood pressure 158/87, pulse ox 96% on 6 liters. She is down to now 3 liters. HEENT: Sclerae nonicteric. NECK: Supple. LUNGS: With crackles posteriorly at the bases. No wheezing. CARDIOVASCULAR: Regular rate. ABDOMEN: Soft, nontender. EXTREMITIES: With no pitting edema. LABORATORY DATA: Reviewed. White cell count 7.0, hemoglobin 12.8, platelets are 175. BUN and creatinine 24 and 1.2. ABGs with a pH of 7.31, pCO2 of 39, pO2 of 64 with bicarbonate of 19. IMPRESSION: 1. Acute hypoxic respiratory failure, likely related to [id number] diastolic heart failure. 2. Abnormal CT chest with bilateral pleural effusions and prominent interstitial markings suggesting congestive heart failure. 3. Recently diagnosed with mycoplasma pneumonia, being treated. 4. No significant tobacco history. 5. History of pulmonary emboli, on warfarin with a therapeutic INR. She has Factor V Leiden mutation. RECOMMENDATIONS: 1. Continue with present oxygen with gradual wean to keep saturation 92% to 94%. 2. Continue IV Lasix. 3. IV steroids with taper. 4. Continue oral doxycycline. 5. Warfarin with maintenance of therapeutic INR. 6. Continue present bronchodilators. 7. Discussed with Dr. Ferrer. We will follow along with you. AIDA MILLER MD DR: NATALIIA/roldan JOB#: [id number] / [id number]
--- NOTE | 2019-03-25 10:52 | PDOC ---
PROGRESS NOTES Subjective Subjective feels better. echo shows a preserved LVEF. discussed with dr. pedroza. CTA chest neg for PE. lab reviewed., Objective Objective Vital Signs Date Time Temp Pulse Resp B/P (MAP) Pulse Ox O2 Delivery O2 Flow Rate FiO2 03/25/19 10:19 98.6 60 24 131/71 (91) 99 Venturi Mask 6.0 98.6 Intake and Output 03/25/19 06:59 Output Total 550 ml Balance -550 ml Output Urine Total 550 ml Physical Exam Abdomen: Soft Heart: Regular rate, Normal S1, Normal S2 Extremities: No edema General: Alert HEENT: Atraumatic Lungs: Other (few basilcar crackles) Neuro: Normal speech Psych/Mental Status: Mental status NL Skin: No rashes Assessment Assessment Problems1. Acute hypoxic respiratory failure. 2. acute diastolic congestive heart failure. 3. Mycoplasma pneumoniae. 4. Paroxysmal atrial fibrillation, on Coumadin. 5. History of pulmonary embolus, on Coumadin. 6. Factor V Leiden mutation. 7. 8. Hypertension. Medical Problems: (1) Acute exacerbation of CHF (congestive heart failure) Status: Acute (2) Hypertension Status: Chronic (3) Shortness of breath Status: Acute Plan Plan of Care iv lasix today continue doxycycline continue nebulizer rx family says cardiology wants to do cardiac cath but defer holding coumadin to cardiology,. inr 2.5 today PT Comment Review of Relevant I have reviewed the following items merly (where applicable) has been applied. Labs Laboratory Tests Test 03/24/19 14:38 03/24/19 15:05 03/24/19 18:00 03/25/19 04:30 O2 Saturation 90 % (92-99) Arterial Blood pH 7.31 (7.35-7.45) Arterial Blood pCO2 at Patient Temp 39 mmHg (35-46) Arterial Blood pO2 at Patient Temp 64 mmHg (65-108) Arterial Blood HCO3 19 mmol/L (21-28) Arterial Blood Base Excess -6 mmol/L (-3-3) FiO2 32 White Blood Count 10.5 x10^3/uL (4.0-11.0) 7.0 x10^3/uL (4.0-11.0) Red Blood Count 4.15 x10^6/uL (3.50-5.40) 4.02 x10^6/uL (3.50-5.40) Hemoglobin 13.4 g/dL (12.0-15.5) 12.8 g/dL (12.0-15.5) Hematocrit 39.0 % (36.0-47.0) 37.4 % (36.0-47.0) Mean Corpuscular Volume 94 fL (79-100) 93 fL (79-100) Mean Corpuscular Hemoglobin 32 pg (25-35) 32 pg (25-35) Mean Corpuscular Hemoglobin Concent 34 g/dL (31-37) 34 g/dL (31-37) Red Cell Distribution Width 14.1 % (11.5-14.5) 14.7 % (11.5-14.5) Platelet Count 213 x10^3/uL (140-400) 175 x10^3/uL (140-400) Neutrophils (%) (Auto) 75 % (31-73) 79 % (31-73) Lymphocytes (%) (Auto) 19 % (24-48) 20 % (24-48) Monocytes (%) (Auto) 5 % (0-9) 1 % (0-9) Eosinophils (%) (Auto) 0 % (0-3) 0 % (0-3) Basophils (%) (Auto) 1 % (0-3) 0 % (0-3) Neutrophils # (Auto) 7.9 x10^3/uL (1.8-7.7) 5.5 x10^3/uL (1.8-7.7) Lymphocytes # (Auto) 2.0 x10^3/uL (1.0-4.8) 1.4 x10^3/uL (1.0-4.8) Monocytes # (Auto) 0.5 x10^3/uL (0.0-1.1) 0.1 x10^3/uL (0.0-1.1) Eosinophils # (Auto) 0.0 x10^3/uL (0.0-0.7) 0.0 x10^3/uL (0.0-0.7) Basophils # (Auto) 0.1 x10^3/uL (0.0-0.2) 0.0 x10^3/uL (0.0-0.2) Prothrombin Time 27.6 SEC (11.7-14.0) Prothromb Time International Ratio 2.6 (0.8-1.1) Activated Partial Thromboplast Time 36 SEC (24-38) D-Dimer (Dina) 0.58 ug/mlFEU (0.00-0.50) Sodium Level 135 mmol/L (136-145) 138 mmol/L (136-145) Potassium Level 4.7 mmol/L (3.5-5.1) 3.9 mmol/L (3.5-5.1) Chloride Level 104 mmol/L (98-107) 102 mmol/L (98-107) Carbon Dioxide Level 25 mmol/L (21-32) 27 mmol/L (21-32) Anion Gap 6 (6-14) 9 (6-14) Blood Urea Nitrogen 21 mg/dL (7-20) 24 mg/dL (7-20) Creatinine 1.2 mg/dL (0.6-1.0) 1.2 mg/dL (0.6-1.0) Estimated GFR (Cockcroft-Gault) 42.3 42.3 BUN/Creatinine Ratio 18 (6-20) Glucose Level 211 mg/dL (70-99) 149 mg/dL (70-99) Lactic Acid Level 1.6 mmol/L (0.4-2.0) Calcium Level 9.6 mg/dL (8.5-10.1) 9.5 mg/dL (8.5-10.1) Magnesium Level 1.8 mg/dL (1.8-2.4) Total Bilirubin 1.2 mg/dL (0.2-1.0) Aspartate Amino Transf (AST/SGOT) 39 U/L (15-37) Alanine Aminotransferase (ALT/SGPT) 43 U/L (14-59) Alkaline Phosphatase 74 U/L (46-116) Troponin I Quantitative < 0.017 ng/mL (0.000-0.055) JC-Lrr-N-Type Natriuretic Peptide 4564 pg/mL (0-449) Total Protein 7.1 g/dL (6.4-8.2) Albumin 3.1 g/dL (3.4-5.0) Albumin/Globulin Ratio 0.8 (1.0-1.7) Urine Collection Type Unknown Urine Color Yellow Urine Clarity Clear Urine pH 5.0 Urine Specific [place] 1.015 Urine Protein Negative mg/dL (NEG-TRACE) Urine Glucose (UA) Negative mg/dL (NEG) Urine Ketones (Stick) Negative mg/dL (NEG) Urine Blood Negative (NEG) Urine Nitrite Negative (NEG) Urine Bilirubin Negative (NEG) Urine Urobilinogen Dipstick 0.2 mg/dL (0.2 mg/dL) Urine Leukocyte Esterase Negative (NEG) Urine RBC 0 /HPF (0-2) Urine WBC 0 /HPF (0-4) Urine Bacteria 0 /HPF (0-FEW) Triglycerides Level 60 mg/dL (0-150) Cholesterol Level 173 mg/dL (0-200) LDL Cholesterol, Calculated 126 mg/dL (0-100) VLDL Cholesterol, Calculated 12 mg/dL (0-40) Non-HDL Cholesterol Calculated 138 mg/dL (0-129) HDL Cholesterol 35 mg/dL (40-60) Cholesterol/HDL Ratio 4.9 Test 03/25/19 10:01 Prothrombin Time 26.7 SEC (11.7-14.0) Prothromb Time International Ratio 2.5 (0.8-1.1) Laboratory Tests Test 03/24/19 14:38 03/24/19 15:05 03/24/19 18:00 03/25/19 04:30 O2 Saturation 90 % (92-99) Arterial Blood pH 7.31 (7.35-7.45) Arterial Blood pCO2 at Patient Temp 39 mmHg (35-46) Arterial Blood pO2 at Patient Temp 64 mmHg (65-108) Arterial Blood HCO3 19 mmol/L (21-28) Arterial Blood Base Excess -6 mmol/L (-3-3) FiO2 32 White Blood Count 10.5 x10^3/uL (4.0-11.0) 7.0 x10^3/uL (4.0-11.0) Red Blood Count 4.15 x10^6/uL (3.50-5.40) 4.02 x10^6/uL (3.50-5.40) Hemoglobin 13.4 g/dL (12.0-15.5) 12.8 g/dL (12.0-15.5) Hematocrit 39.0 % (36.0-47.0) 37.4 % (36.0-47.0) Mean Corpuscular Volume 94 fL (79-100) 93 fL (79-100) Mean Corpuscular Hemoglobin 32 pg (25-35) 32 pg (25-35) Mean Corpuscular Hemoglobin Concent 34 g/dL (31-37) 34 g/dL (31-37) Red Cell Distribution Width 14.1 % (11.5-14.5) 14.7 % (11.5-14.5) Platelet Count 213 x10^3/uL (140-400) 175 x10^3/uL (140-400) Neutrophils (%) (Auto) 75 % (31-73) 79 % (31-73) Lymphocytes (%) (Auto) 19 % (24-48) 20 % (24-48) Monocytes (%) (Auto) 5 % (0-9) 1 % (0-9) Eosinophils (%) (Auto) 0 % (0-3) 0 % (0-3) Basophils (%) (Auto) 1 % (0-3) 0 % (0-3) Neutrophils # (Auto) 7.9 x10^3/uL (1.8-7.7) 5.5 x10^3/uL (1.8-7.7) Lymphocytes # (Auto) 2.0 x10^3/uL (1.0-4.8) 1.4 x10^3/uL (1.0-4.8) Monocytes # (Auto) 0.5 x10^3/uL (0.0-1.1) 0.1 x10^3/uL (0.0-1.1) Eosinophils # (Auto) 0.0 x10^3/uL (0.0-0.7) 0.0 x10^3/uL (0.0-0.7) Basophils # (Auto) 0.1 x10^3/uL (0.0-0.2) 0.0 x10^3/uL (0.0-0.2) Prothrombin Time 27.6 SEC (11.7-14.0) Prothromb Time International Ratio 2.6 (0.8-1.1) Activated Partial Thromboplast Time 36 SEC (24-38) D-Dimer (Dina) 0.58 ug/mlFEU (0.00-0.50) Sodium Level 135 mmol/L (136-145) 138 mmol/L (136-145) Potassium Level 4.7 mmol/L (3.5-5.1) 3.9 mmol/L (3.5-5.1) Chloride Level 104 mmol/L (98-107) 102 mmol/L (98-107) Carbon Dioxide Level 25 mmol/L (21-32) 27 mmol/L (21-32) Anion Gap 6 (6-14) 9 (6-14) Blood Urea Nitrogen 21 mg/dL (7-20) 24 mg/dL (7-20) Creatinine 1.2 mg/dL (0.6-1.0) 1.2 mg/dL (0.6-1.0) Estimated GFR (Cockcroft-Gault) 42.3 42.3 BUN/Creatinine Ratio 18 (6-20) Glucose Level 211 mg/dL (70-99) 149 mg/dL (70-99) Lactic Acid Level 1.6 mmol/L (0.4-2.0) Calcium Level 9.6 mg/dL (8.5-10.1) 9.5 mg/dL (8.5-10.1) Magnesium Level 1.8 mg/dL (1.8-2.4) Total Bilirubin 1.2 mg/dL (0.2-1.0) Aspartate Amino Transf (AST/SGOT) 39 U/L (15-37) Alanine Aminotransferase (ALT/SGPT) 43 U/L (14-59) Alkaline Phosphatase 74 U/L (46-116) Troponin I Quantitative < 0.017 ng/mL (0.000-0.055) XQ-Dag-F-Type Natriuretic Peptide 4564 pg/mL (0-449) Total Protein 7.1 g/dL (6.4-8.2) Albumin 3.1 g/dL (3.4-5.0) Albumin/Globulin Ratio 0.8 (1.0-1.7) Urine Collection Type Unknown Urine Color Yellow Urine Clarity Clear Urine pH 5.0 Urine Specific [place] 1.015 Urine Protein Negative mg/dL (NEG-TRACE) Urine Glucose (UA) Negative mg/dL (NEG) Urine Ketones (Stick) Negative mg/dL (NEG) Urine Blood Negative (NEG) Urine Nitrite Negative (NEG) Urine Bilirubin Negative (NEG) Urine Urobilinogen Dipstick 0.2 mg/dL (0.2 mg/dL) Urine Leukocyte Esterase Negative (NEG) Urine RBC 0 /HPF (0-2) Urine WBC 0 /HPF (0-4) Urine Bacteria 0 /HPF (0-FEW) Triglycerides Level 60 mg/dL (0-150) Cholesterol Level 173 mg/dL (0-200) LDL Cholesterol, Calculated 126 mg/dL (0-100) VLDL Cholesterol, Calculated 12 mg/dL (0-40) Non-HDL Cholesterol Calculated 138 mg/dL (0-129) HDL Cholesterol 35 mg/dL (40-60) Cholesterol/HDL Ratio 4.9 Test 03/25/19 10:01 Prothrombin Time 26.7 SEC (11.7-14.0) Prothromb Time International Ratio 2.5 (0.8-1.1) Medications Current Medications Albuterol/ Ipratropium (Duoneb) 3 ml 1X ONCE NEB Last administered on 03/24/19at 14:21; Start 03/24/19 at 14:15; Stop 03/24/19 at 14:16; Status DC Methylprednisolone Sodium Succinate (SOLU-Medrol 125MG VIAL) 62.5 mg 1X ONCE IV Last administered on 03/24/19at 15:17; Start 03/24/19 at 14:15; Stop 03/24/19 at 14:16; Status DC Ondansetron HCl (Zofran) 4 mg 1X ONCE IV Last administered on 03/24/19at 15:17; Start 03/24/19 at 14:15; Stop 03/24/19 at 14:16; Status DC Iohexol (Omnipaque 350 Mg/ml) 70 ml 1X ONCE IV Last administered on 03/24/19at 16:00; Start 03/24/19 at 16:00; Stop 03/24/19 at 16:01; Status DC Info (CONTRAST GIVEN -- Rx MONITORING) 1 each PRN DAILY PRN MC SEE COMMENTS; Start 03/24/19 at 16:00; Stop 03/26/19 at 15:59 Furosemide (Lasix) 20 mg 1X ONCE IVP Last administered on 03/24/19at 16:26; Start 03/24/19 at 16:00; Stop 03/24/19 at 16:01; Status DC Doxycycline Hyclate (Vibra-Tab) 100 mg BID PO Last administered on 03/25/19 09:35; Start 03/24/19 at 21:00 Budesonide (Pulmicort) 0.5 mg RTBID NEB Last administered on 03/25/19 07:19; Start 03/24/19 at 20:00 Albuterol/ Ipratropium (Duoneb) 3 ml RTQID NEB Last administered on 03/25/19 07:19; Start 03/24/19 at 17:00 Cyanocobalamin (Vitamin B-12) 1,000 mcg DAILY PO Last administered on 03/25/19 09:35; Start 03/25/19 at 09:00 Flecainide Acetate (Tambocor) 100 mg Q12HR PO Last administered on 03/25/19 09:35; Start 03/24/19 at 21:00; Stop 03/25/19 at 09:38; Status DC Losartan Potassium (Cozaar) 50 mg DAILY PO Last administered on 03/25/19 09:35; Start 03/25/19 at 09:00 Amlodipine Besylate (Norvasc) 2.5 mg DAILY PO Last administered on 03/25/19 09:35; Start 03/25/19 at 09:00 Warfarin Sodium (Coumadin) 2.5 mg DAILY16 PO Last administered on 03/24/19 18:33; Start 03/24/19 at 17:00 Methylprednisolone Sodium Succinate (SOLU-Medrol 40MG VIAL) 40 mg Q12HR IV Last administered on 03/25/19 09:35; Start 03/24/19 at 21:00 Levothyroxine Sodium (Synthroid) 50 mcg DAILY06 PO Last administered on 03/25/19 06:26; Start 03/25/19 at 06:00 Acetaminophen (Tylenol) 650 mg PRN Q6HRS PRN PO MILD PAIN / TEMP; Start 03/24/19 at 16:30 Metoprolol Tartrate (Lopressor) 25 mg BID PO Last administered on 03/25/19 09:35; Start 03/24/19 at 21:00 Ondansetron HCl (Zofran Odt) 4 mg PRN Q6HRS PRN PO NAUSEA/VOMITING; Start 03/24/19 at 16:45 Warfarin Sodium (Coumadin Per Physician) 1 each PRN DAILY PRN MC SEE COMMENTS Last administered on 03/25/19at 10:45; Start 03/24/19 at 17:00 Lactobacillus Rhamnosus (Culturelle) 1 cap BID PO ; Start 03/25/19 at 21:00 Furosemide (Lasix) 40 mg DAILY IVP Last administered on 03/25/19at 09:35; Start 03/25/19 at 09:30 Active Scripts Active Losartan Potassium 50 Mg Tablet 50 Mg PO DAILY Flecainide Acetate 50 Mg Tablet 100 Mg PO Q12HR Doxycycline Hyclate 100 Mg Tablet 100 Mg PO BID Reported Vitamin B-12 (Cyanocobalamin (Vitamin B-12)) 1,000 Mcg Tablet 1,000 Mcg PO DAILY Synthroid (Levothyroxine Sodium) 50 Mcg Tablet 50 Mcg PO DAILYAC Inderal La (Propranolol Hcl) 80 Mg Cap.sa.24h 1 Cap PO DAILY Warfarin Sodium 3 Mg Tablet 3 Mg PO QODAY Warfarin Sodium 2.5 Mg Tablet 2.5 Mg PO QODAY Amlodipine Besylate 2.5 Mg Tablet 2.5 Mg PO DAILY Vitals/I & O Vital Sign - Last 24 Hours 03/24/19 03/24/19 03/24/19 03/24/19 14:24 14:32 14:40 15:00 Temp 98.1 98.1 Pulse 53 54 Resp 18 17 B/P (MAP) 136/66 (89) 136/66 (89) Pulse Ox 92 97 92 93 O2 Delivery Nasal Cannula Nasal Cannula Nasal Cannula Venturi Mask O2 Flow Rate 2.0 3.0 3.0 6.0 03/24/19 03/24/19 03/24/19 03/24/19 16:00 17:00 17:20 18:00 Temp 96.2 96.2 Pulse 60 64 60 92 Resp 16 15 17 20 B/P (MAP) 157/68 (97) 138/97 (111) 142/92 (109) 140/72 (94) Pulse Ox 92 93 93 92 O2 Delivery Venturi Mask Venturi Mask Venturi Mask Venturi Mask O2 Flow Rate 6.0 6.0 6.0 6.0 03/24/19 03/24/19 03/24/19 03/24/19 19:38 19:58 19:59 20:00 Temp 97.7 97.7 Pulse 63 Resp 28 B/P (MAP) 169/75 (106) Pulse Ox 99 95 95 O2 Delivery Venturi Mask Nasal Cannula Nasal Cannula Venturi Mask O2 Flow Rate 6.0 2.0 2.0 6.0 03/24/19 03/24/19 03/24/19 03/24/19 20:03 21:36 21:36 23:00 Temp 97.6 97.6 Pulse 63 63 57 Resp 20 B/P (MAP) 169/75 169/75 141/70 (93) Pulse Ox 95 99 O2 Delivery Venturi Mask Venturi Mask O2 Flow Rate 6.0 6.0 03/25/19 03/25/19 03/25/19 03/25/19 03:00 07:14 07:22 08:00 Temp 98.1 97.5 98.1 97.5 Pulse 59 59 Resp 24 24 B/P (MAP) 123/79 (94) 155/77 (103) Pulse Ox 98 98 96 O2 Delivery Venturi Mask Venturi Mask Venturi Mask Nasal Cannula O2 Flow Rate 6.0 6.0 6.0 2.0 03/25/19 03/25/19 03/25/19 03/25/19 09:35 09:35 09:35 09:35 Pulse 65 65 65 65 B/P (MAP) 158/87 158/87 158/87 158/87 03/25/19 10:19 Temp 98.6 98.6 Pulse 60 Resp 24 B/P (MAP) 131/71 (91) Pulse Ox 99 O2 Delivery Venturi Mask O2 Flow Rate 6.0 Intake and Output 03/24/19 03/24/19 03/25/19 14:59 22:59 06:59 Output Total 550 ml 0 ml Balance -550 ml 0 ml RAKEL CENTENO MD Mar 25, 2019 10:52
[2019-03-25] MEDS: POTASSIUM CHLORIDE 20 MEQ TABLET.ER. PO SCH (12:11)
[2019-03-25 14:45] VITALS: BP 141/69
[2019-03-25] MEDS: HYDROCORTISONE 1% TOPICAL OINTMENT 30GM TUBE. TP PRN ×2 (16:44→20:59)
[2019-03-25] MEDS: ASPIRIN ENTERIC COATED 81 MG TABLET.DR. PO SCH (16:44)
[2019-03-25 19:00] VITALS: BP 151/69
[2019-03-25] MEDS: ATORVASTATIN CALCIUM 20 MG TABLET PO SCH (20:59)
[2019-03-25] MEDS: LACTOBACILLUS RHAMNOSUS GG 1 CAPSULE. PO SCH (20:59)
[2019-03-25 23:00] VITALS: BP 157/77
[2019-03-26 03:00] VITALS: BP 135/60
[2019-03-26 04:30] LABS: CALCIUM 9.4 mg/dL (8.5-10.1); CREATININE 1.4 mg/dL (0.6-1.0); GFR 35.4; POTASSIUM 4.4 mmol/L (3.5-5.1)
[2019-03-26] MEDS: LEVOTHYROXINE 50 MCG TABLET PO SCH (06:23)
[2019-03-26 07:22] VITALS: BP 165/78
[2019-03-26] MEDS: BUDESONIDE 0.5 MG/2 ML NEBU. NEB SCH ×2 (07:54→20:00)
[2019-03-26] MEDS: IPRATRPIUM/ALBUTEROL 0.5/2.5MG 3 ML NEBU. NEB SCH ×4 (07:54→20:00)
[2019-03-26] MEDS: POTASSIUM CHLORIDE 20 MEQ TABLET.ER. PO SCH (08:00)
[2019-03-26] MEDS: FUROSEMIDE 40 MG/4 ML VIAL. IVP SCH (09:00)
[2019-03-26] MEDS: CYANOCOBALAMIN (VITAMIN B-12) 1,000 MCG TABLET. PO SCH (09:10)
[2019-03-26] MEDS: METOPROLOL TART IMMED RELEASE 25 MG TABLET. PO SCH ×2 (09:10→20:58)
[2019-03-26] MEDS: HYDROCORTISONE 1% TOPICAL OINTMENT 30GM TUBE. TP PRN (09:10)
[2019-03-26] MEDS: LACTOBACILLUS RHAMNOSUS GG 1 CAPSULE. PO SCH ×2 (09:11→20:58)
[2019-03-26] MEDS: LOSARTAN POTASSIUM 50 MG TABLET. PO SCH (09:11)
[2019-03-26] MEDS: amLODIPine BESYLATE 5 MG TABLET PO SCH (09:11)
[2019-03-26] MEDS: DOXYCYCLINE HYCLATE 100 MG TABLET PO SCH (09:11)
[2019-03-26] MEDS: ASPIRIN ENTERIC COATED 81 MG TABLET.DR. PO SCH (09:11)
[2019-03-26] MEDS: methylPREDNISolone SOD SUCC PF 40 MG/ML VIAL. IV SCH (09:12)
--- NOTE | 2019-03-26 10:24 | PDOC ---
CARDIOLOGY PROGRESS NOTE SUBJECTIVE: Patient denies any chest pain or dyspnea. Able to walk to bath room but daughter feels like she is having dyspnea when ambulating She developed rash overnight in the torso and has been started on solumedrol. Patient and family thing this may be lasix rash although less likely to be a sulfa drug reaction based on presentation. Patient does NOT want heart cath this admission at this time. OBJECTIVE: Vital Signs/I&O: VSS: SBP 130-160, HR 60's Objective: GEN.: No apparent distress. Alert and oriented. HEENT: Head is normocephalic, atraumatic NECK: Supple. LUNGS: Clear to auscultation. HEART: RRR, S1, S2 present. Peripheral pulses intact ABDOMEN: Soft, nontender. Positive bowel sounds. EXTREMITIES: Without any cyanosis. NEUROLOGIC: Normal speech, normal tone PSYCHIATRIC: Normal affect, normal mood. SKIN: Faint reddish rash mostly localized to the torso CURRENT MEDICATIONS: asa, atorvastatin, metoprolol, amlodipine and losartan DIAGNOSTIC TESTING: Echo with normal Ef and pulm HTN ASSESSMENT: 1. Acute on chronic diastolic HF 2. Probable secondary P. HTN 3. PAF 4. Hx of PE due to hypercoag state PLAN: 1. lasix held for today due to concern for rash but unlikely to be drug related. If needed, can consider ethacrynic acid. 2. Restart coumadin tomorrow. If patient feels better and does not want cath, ok to DC from CV standpoint. 3. Would increase amlodipine to 5mg daily on discharge and use spironolactone for diuresis if needed if there is concern for lasix rash. MAGGI YANG MD Mar 26, 2019 10:24
[2019-03-26 10:48] VITALS: BP 163/64
--- NOTE | 2019-03-26 10:56 | PDOC ---
PULMONARY PROGRESS NOTES Subjective HISTORY OF PRESENT ILLNESS: The patient is 88 years old who has no significant tobacco history. She was hospitalized and recently discharged after being treated for mycoplasma pneumonia. She has been on doxycycline for about one week. The patient also has history of pulmonary embolism and has been on chronic Coumadin treatment. She has history of Factor V Leiden mutation. She states that she felt better when she went home. However, a few days later, she started to have some shortness of breath. She felt weak as well. She also has a cough, which has been nonproductive. No chest pain, no headache, no nausea, vomiting, no diarrhea. No dysuria, no focal weakness. CT angiogram was performed. The patient has no evidence of pulmonary embolism. There are bilateral pleural effusions, more on the right than on the left. There are interstitial infiltrates, more compatible with congestive heart failure. She had an echocardiogram done as well, which showed a normal ejection fraction and PA pressure of 57. She had an elevated BNP. She feels better with diuresis. She does complain of new truncal skin rash. Comments PAST MEDICAL HISTORY: Significant for history of recent hospitalization for mycoplasma pneumonia, history of paroxysmal atrial fibrillation with rapid ventricular response, history of pulmonary embolism, is on chronic Coumadin therapy, history of factor V Leiden mutation, hypertension, hypothyroidism, history of Graves' disease, treated with radioactive iodine. PAST SURGICAL HISTORY: Total abdominal hysterectomy, bilateral salpingo-oophorectomy, tonsillectomy, lumbar spondylolysis. SOCIAL HISTORY: Does not smoke and does not drink. FAMILY HISTORY: Mother had COPD. REVIEW OF SYSTEMS: Twelve-point system obtained. Pertinent positives discussed in my history of present illness, otherwise noncontributory. All systems that were negative were reviewed as well. ALLERGIES: PENICILLIN, HEPARIN, LEVOFLOXACIN, AND MORPHINE. Vitals Vital Signs Date Time Temp Pulse Resp B/P (MAP) Pulse Ox O2 Delivery O2 Flow Rate FiO2 03/26/19 09:12 63 165/78 03/26/19 07:57 100 Nasal Cannula 2.0 03/26/19 07:22 97.6 20 97.6 General: Alert, Oriented X4, No acute distress Lungs: Other (bibasilar rales) Cardiovascular: S1 Abdomen: Soft Neuro Exam: Alert, Oriented Extremities: No Edema Skin: Other (truncal macular rash) Labs Laboratory Tests Test 03/24/19 14:38 03/24/19 15:05 03/24/19 18:00 03/25/19 04:30 O2 Saturation 90 % (92-99) Arterial Blood pH 7.31 (7.35-7.45) Arterial Blood pCO2 at Patient Temp 39 mmHg (35-46) Arterial Blood pO2 at Patient Temp 64 mmHg (65-108) Arterial Blood HCO3 19 mmol/L (21-28) Arterial Blood Base Excess -6 mmol/L (-3-3) FiO2 32 White Blood Count 10.5 x10^3/uL (4.0-11.0) 7.0 x10^3/uL (4.0-11.0) Red Blood Count 4.15 x10^6/uL (3.50-5.40) 4.02 x10^6/uL (3.50-5.40) Hemoglobin 13.4 g/dL (12.0-15.5) 12.8 g/dL (12.0-15.5) Hematocrit 39.0 % (36.0-47.0) 37.4 % (36.0-47.0) Mean Corpuscular Volume 94 fL (79-100) 93 fL (79-100) Mean Corpuscular Hemoglobin 32 pg (25-35) 32 pg (25-35) Mean Corpuscular Hemoglobin Concent 34 g/dL (31-37) 34 g/dL (31-37) Red Cell Distribution Width 14.1 % (11.5-14.5) 14.7 % (11.5-14.5) Platelet Count 213 x10^3/uL (140-400) 175 x10^3/uL (140-400) Neutrophils (%) (Auto) 75 % (31-73) 79 % (31-73) Lymphocytes (%) (Auto) 19 % (24-48) 20 % (24-48) Monocytes (%) (Auto) 5 % (0-9) 1 % (0-9) Eosinophils (%) (Auto) 0 % (0-3) 0 % (0-3) Basophils (%) (Auto) 1 % (0-3) 0 % (0-3) Neutrophils # (Auto) 7.9 x10^3/uL (1.8-7.7) 5.5 x10^3/uL (1.8-7.7) Lymphocytes # (Auto) 2.0 x10^3/uL (1.0-4.8) 1.4 x10^3/uL (1.0-4.8) Monocytes # (Auto) 0.5 x10^3/uL (0.0-1.1) 0.1 x10^3/uL (0.0-1.1) Eosinophils # (Auto) 0.0 x10^3/uL (0.0-0.7) 0.0 x10^3/uL (0.0-0.7) Basophils # (Auto) 0.1 x10^3/uL (0.0-0.2) 0.0 x10^3/uL (0.0-0.2) Prothrombin Time 27.6 SEC (11.7-14.0) Prothromb Time International Ratio 2.6 (0.8-1.1) Activated Partial Thromboplast Time 36 SEC (24-38) D-Dimer (Dina) 0.58 ug/mlFEU (0.00-0.50) Sodium Level 135 mmol/L (136-145) 138 mmol/L (136-145) Potassium Level 4.7 mmol/L (3.5-5.1) 3.9 mmol/L (3.5-5.1) Chloride Level 104 mmol/L (98-107) 102 mmol/L (98-107) Carbon Dioxide Level 25 mmol/L (21-32) 27 mmol/L (21-32) Anion Gap 6 (6-14) 9 (6-14) Blood Urea Nitrogen 21 mg/dL (7-20) 24 mg/dL (7-20) Creatinine 1.2 mg/dL (0.6-1.0) 1.2 mg/dL (0.6-1.0) Estimated GFR (Cockcroft-Gault) 42.3 42.3 BUN/Creatinine Ratio 18 (6-20) Glucose Level 211 mg/dL (70-99) 149 mg/dL (70-99) Lactic Acid Level 1.6 mmol/L (0.4-2.0) Calcium Level 9.6 mg/dL (8.5-10.1) 9.5 mg/dL (8.5-10.1) Magnesium Level 1.8 mg/dL (1.8-2.4) Total Bilirubin 1.2 mg/dL (0.2-1.0) Aspartate Amino Transf (AST/SGOT) 39 U/L (15-37) Alanine Aminotransferase (ALT/SGPT) 43 U/L (14-59) Alkaline Phosphatase 74 U/L (46-116) Troponin I Quantitative < 0.017 ng/mL (0.000-0.055) TY-Ccs-B-Type Natriuretic Peptide 4564 pg/mL (0-449) Total Protein 7.1 g/dL (6.4-8.2) Albumin 3.1 g/dL (3.4-5.0) Albumin/Globulin Ratio 0.8 (1.0-1.7) Urine Collection Type Unknown Urine Color Yellow Urine Clarity Clear Urine pH 5.0 Urine Specific [place] 1.015 Urine Protein Negative mg/dL (NEG-TRACE) Urine Glucose (UA) Negative mg/dL (NEG) Urine Ketones (Stick) Negative mg/dL (NEG) Urine Blood Negative (NEG) Urine Nitrite Negative (NEG) Urine Bilirubin Negative (NEG) Urine Urobilinogen Dipstick 0.2 mg/dL (0.2 mg/dL) Urine Leukocyte Esterase Negative (NEG) Urine RBC 0 /HPF (0-2) Urine WBC 0 /HPF (0-4) Urine Bacteria 0 /HPF (0-FEW) Triglycerides Level 60 mg/dL (0-150) Cholesterol Level 173 mg/dL (0-200) LDL Cholesterol, Calculated 126 mg/dL (0-100) VLDL Cholesterol, Calculated 12 mg/dL (0-40) Non-HDL Cholesterol Calculated 138 mg/dL (0-129) HDL Cholesterol 35 mg/dL (40-60) Cholesterol/HDL Ratio 4.9 Test 03/25/19 10:01 03/26/19 04:00 Prothrombin Time 26.7 SEC (11.7-14.0) Prothromb Time International Ratio 2.5 (0.8-1.1) Sodium Level 138 mmol/L (136-145) Potassium Level 4.4 mmol/L (3.5-5.1) Chloride Level 102 mmol/L (98-107) Carbon Dioxide Level 28 mmol/L (21-32) Anion Gap 8 (6-14) Blood Urea Nitrogen 39 mg/dL (7-20) Creatinine 1.4 mg/dL (0.6-1.0) Estimated GFR (Cockcroft-Gault) 35.4 Glucose Level 147 mg/dL (70-99) Calcium Level 9.4 mg/dL (8.5-10.1) Laboratory Tests Test 03/26/19 04:00 Sodium Level 138 mmol/L (136-145) Potassium Level 4.4 mmol/L (3.5-5.1) Chloride Level 102 mmol/L (98-107) Carbon Dioxide Level 28 mmol/L (21-32) Anion Gap 8 (6-14) Blood Urea Nitrogen 39 mg/dL (7-20) Creatinine 1.4 mg/dL (0.6-1.0) Estimated GFR (Cockcroft-Gault) 35.4 Glucose Level 147 mg/dL (70-99) Calcium Level 9.4 mg/dL (8.5-10.1) Medications Active Scripts Medications Dose Route/Sig Max Daily Dose Days Date Category Losartan Potassium 50 Mg Tablet 50 Mg PO DAILY 03/20/19 Rx Flecainide Acetate 50 Mg Tablet 100 Mg PO Q12HR 03/20/19 Rx Doxycycline Hyclate 100 Mg Tablet 100 Mg PO BID 03/20/19 Rx Vitamin B-12 (Cyanocobalamin (Vitamin B-12)) 1,000 Mcg Tablet 1,000 Mcg PO DAILY 03/18/19 Reported Synthroid (Levothyroxine Sodium) 50 Mcg Tablet 50 Mcg PO DAILYAC 03/18/19 Reported Inderal La (Propranolol Hcl) 80 Mg Cap.sa.24h 1 Cap PO DAILY 03/18/19 Reported Warfarin Sodium 3 Mg Tablet 3 Mg PO QODAY 03/18/19 Reported Warfarin Sodium 2.5 Mg Tablet 2.5 Mg PO QODAY 03/18/19 Reported Amlodipine Besylate 2.5 Mg Tablet 2.5 Mg PO DAILY 03/18/19 Reported Impression . IMPRESSION: 1. Acute hypoxic respiratory failure, likely related to [id number] diastolic heart failure. 2. Abnormal CT chest with bilateral pleural effusions and prominent interstitial markings suggesting congestive heart failure. 3. Recently diagnosed with mycoplasma pneumonia,. 4. History of pulmonary emboli, on warfarin with a therapeutic INR. She has Factor V Leiden mutation. 5. skin rash. suspect doxycyline Plan . RECOMMENDATIONS: 1. Continue with present oxygen with gradual wean to keep saturation 92% to 94%. 2. diureses per cardiology. would keep in negative fluid balance. I agree with Dr. Garcia that lasix unlikely cause of rash 3. steroid taper. 4. hold doxycycline. 5. Warfarin with maintenance of therapeutic INR. 6. Continue present bronchodilators. JAMAL MARS MD Mar 26, 2019 10:56
[2019-03-26] MEDS ORDERED: hydrOXYzine 10 MG TABLET PO PRN (11:15)
--- NOTE | 2019-03-26 11:15 | PDOC ---
PROGRESS NOTES Subjective Subjective has a red rash on extremities and trunk with itching suspect due to doxycycline, declines cardiac cath. bun 34 and creatinine 1.4. declines lasix today Objective Objective Vital Signs Date Time Temp Pulse Resp B/P (MAP) Pulse Ox O2 Delivery O2 Flow Rate FiO2 03/26/19 10:48 98.1 60 20 163/64 (97) 100 Venturi Mask 6.0 98.1 Intake and Output 03/26/19 06:59 Intake Total 900 ml Output Total 800 ml Balance 100 ml Intake Oral 900 ml Output Urine Total 800 ml Physical Exam Abdomen: Soft Heart: Regular rate, Normal S1, Normal S2 Extremities: No edema General: Alert HEENT: Atraumatic Lungs: Other (few basilar crackles) Neuro: Normal speech Psych/Mental Status: Mental status NL Skin: Other (red macular rash on trunk and extremities) Assessment Assessment Problems. Acute hypoxic respiratory failure. 2. acute diastolic congestive heart failure. better 3. Mycoplasma pneumoniae. 4. Paroxysmal atrial fibrillation, on Coumadin. 5. History of pulmonary embolus, on Coumadin. 6. Factor V Leiden mutation. 7. 8. Hypertension. drug rash due to doxycycline acute kidney injury due to intravascular volume depletion due to diuretic Medical Problems: (1) Acute exacerbation of CHF (congestive heart failure) Status: Acute (2) Hypertension Status: Chronic (3) Shortness of breath Status: Acute Plan Plan of Care d/c doxycycline decrease solumedrol d/c lasix and kcl resume coumadin consider spironolactone tomorrow lab tomorrow discussed with dr Nicolas arguelles prnori Comment Review of Relevant I have reviewed the following items merly (where applicable) has been applied. Labs Laboratory Tests Test 03/24/19 14:38 03/24/19 15:05 03/24/19 18:00 03/25/19 04:30 O2 Saturation 90 % (92-99) Arterial Blood pH 7.31 (7.35-7.45) Arterial Blood pCO2 at Patient Temp 39 mmHg (35-46) Arterial Blood pO2 at Patient Temp 64 mmHg (65-108) Arterial Blood HCO3 19 mmol/L (21-28) Arterial Blood Base Excess -6 mmol/L (-3-3) FiO2 32 White Blood Count 10.5 x10^3/uL (4.0-11.0) 7.0 x10^3/uL (4.0-11.0) Red Blood Count 4.15 x10^6/uL (3.50-5.40) 4.02 x10^6/uL (3.50-5.40) Hemoglobin 13.4 g/dL (12.0-15.5) 12.8 g/dL (12.0-15.5) Hematocrit 39.0 % (36.0-47.0) 37.4 % (36.0-47.0) Mean Corpuscular Volume 94 fL (79-100) 93 fL (79-100) Mean Corpuscular Hemoglobin 32 pg (25-35) 32 pg (25-35) Mean Corpuscular Hemoglobin Concent 34 g/dL (31-37) 34 g/dL (31-37) Red Cell Distribution Width 14.1 % (11.5-14.5) 14.7 % (11.5-14.5) Platelet Count 213 x10^3/uL (140-400) 175 x10^3/uL (140-400) Neutrophils (%) (Auto) 75 % (31-73) 79 % (31-73) Lymphocytes (%) (Auto) 19 % (24-48) 20 % (24-48) Monocytes (%) (Auto) 5 % (0-9) 1 % (0-9) Eosinophils (%) (Auto) 0 % (0-3) 0 % (0-3) Basophils (%) (Auto) 1 % (0-3) 0 % (0-3) Neutrophils # (Auto) 7.9 x10^3/uL (1.8-7.7) 5.5 x10^3/uL (1.8-7.7) Lymphocytes # (Auto) 2.0 x10^3/uL (1.0-4.8) 1.4 x10^3/uL (1.0-4.8) Monocytes # (Auto) 0.5 x10^3/uL (0.0-1.1) 0.1 x10^3/uL (0.0-1.1) Eosinophils # (Auto) 0.0 x10^3/uL (0.0-0.7) 0.0 x10^3/uL (0.0-0.7) Basophils # (Auto) 0.1 x10^3/uL (0.0-0.2) 0.0 x10^3/uL (0.0-0.2) Prothrombin Time 27.6 SEC (11.7-14.0) Prothromb Time International Ratio 2.6 (0.8-1.1) Activated Partial Thromboplast Time 36 SEC (24-38) D-Dimer (Dina) 0.58 ug/mlFEU (0.00-0.50) Sodium Level 135 mmol/L (136-145) 138 mmol/L (136-145) Potassium Level 4.7 mmol/L (3.5-5.1) 3.9 mmol/L (3.5-5.1) Chloride Level 104 mmol/L (98-107) 102 mmol/L (98-107) Carbon Dioxide Level 25 mmol/L (21-32) 27 mmol/L (21-32) Anion Gap 6 (6-14) 9 (6-14) Blood Urea Nitrogen 21 mg/dL (7-20) 24 mg/dL (7-20) Creatinine 1.2 mg/dL (0.6-1.0) 1.2 mg/dL (0.6-1.0) Estimated GFR (Cockcroft-Gault) 42.3 42.3 BUN/Creatinine Ratio 18 (6-20) Glucose Level 211 mg/dL (70-99) 149 mg/dL (70-99) Lactic Acid Level 1.6 mmol/L (0.4-2.0) Calcium Level 9.6 mg/dL (8.5-10.1) 9.5 mg/dL (8.5-10.1) Magnesium Level 1.8 mg/dL (1.8-2.4) Total Bilirubin 1.2 mg/dL (0.2-1.0) Aspartate Amino Transf (AST/SGOT) 39 U/L (15-37) Alanine Aminotransferase (ALT/SGPT) 43 U/L (14-59) Alkaline Phosphatase 74 U/L (46-116) Troponin I Quantitative < 0.017 ng/mL (0.000-0.055) QL-Dxz-P-Type Natriuretic Peptide 4564 pg/mL (0-449) Total Protein 7.1 g/dL (6.4-8.2) Albumin 3.1 g/dL (3.4-5.0) Albumin/Globulin Ratio 0.8 (1.0-1.7) Urine Collection Type Unknown Urine Color Yellow Urine Clarity Clear Urine pH 5.0 Urine Specific [place] 1.015 Urine Protein Negative mg/dL (NEG-TRACE) Urine Glucose (UA) Negative mg/dL (NEG) Urine Ketones (Stick) Negative mg/dL (NEG) Urine Blood Negative (NEG) Urine Nitrite Negative (NEG) Urine Bilirubin Negative (NEG) Urine Urobilinogen Dipstick 0.2 mg/dL (0.2 mg/dL) Urine Leukocyte Esterase Negative (NEG) Urine RBC 0 /HPF (0-2) Urine WBC 0 /HPF (0-4) Urine Bacteria 0 /HPF (0-FEW) Triglycerides Level 60 mg/dL (0-150) Cholesterol Level 173 mg/dL (0-200) LDL Cholesterol, Calculated 126 mg/dL (0-100) VLDL Cholesterol, Calculated 12 mg/dL (0-40) Non-HDL Cholesterol Calculated 138 mg/dL (0-129) HDL Cholesterol 35 mg/dL (40-60) Cholesterol/HDL Ratio 4.9 Test 03/25/19 10:01 03/26/19 04:00 Prothrombin Time 26.7 SEC (11.7-14.0) Prothromb Time International Ratio 2.5 (0.8-1.1) Sodium Level 138 mmol/L (136-145) Potassium Level 4.4 mmol/L (3.5-5.1) Chloride Level 102 mmol/L (98-107) Carbon Dioxide Level 28 mmol/L (21-32) Anion Gap 8 (6-14) Blood Urea Nitrogen 39 mg/dL (7-20) Creatinine 1.4 mg/dL (0.6-1.0) Estimated GFR (Cockcroft-Gault) 35.4 Glucose Level 147 mg/dL (70-99) Calcium Level 9.4 mg/dL (8.5-10.1) Laboratory Tests Test 03/26/19 04:00 Sodium Level 138 mmol/L (136-145) Potassium Level 4.4 mmol/L (3.5-5.1) Chloride Level 102 mmol/L (98-107) Carbon Dioxide Level 28 mmol/L (21-32) Anion Gap 8 (6-14) Blood Urea Nitrogen 39 mg/dL (7-20) Creatinine 1.4 mg/dL (0.6-1.0) Estimated GFR (Cockcroft-Gault) 35.4 Glucose Level 147 mg/dL (70-99) Calcium Level 9.4 mg/dL (8.5-10.1) Microbiology 03/24/19 Blood Culture - Preliminary, Resulted NO GROWTH AFTER 1 DAY Medications Current Medications Albuterol/ Ipratropium (Duoneb) 3 ml 1X ONCE NEB Last administered on 03/24/19 at 14:21; Start 03/24/19 at 14:15; Stop 03/24/19 at 14:16; Status DC Methylprednisolone Sodium Succinate (SOLU-Medrol 125MG VIAL) 62.5 mg 1X ONCE IV Last administered on 03/24/19at 15:17; Start 03/24/19 at 14:15; Stop 03/24/19 at 14:16; Status DC Ondansetron HCl (Zofran) 4 mg 1X ONCE IV Last administered on 03/24/19at 15:17; Start 03/24/19 at 14:15; Stop 03/24/19 at 14:16; Status DC Iohexol (Omnipaque 350 Mg/ml) 70 ml 1X ONCE IV Last administered on 03/24/19at 16:00; Start 03/24/19 at 16:00; Stop 03/24/19 at 16:01; Status DC Info (CONTRAST GIVEN -- Rx MONITORING) 1 each PRN DAILY PRN MC SEE COMMENTS; Start 03/24/19 at 16:00; Stop 03/26/19 at 15:59 Furosemide (Lasix) 20 mg 1X ONCE IVP Last administered on 03/24/19at 16:26; Start 03/24/19 at 16:00; Stop 03/24/19 at 16:01; Status DC Doxycycline Hyclate (Vibra-Tab) 100 mg BID PO Last administered on 03/26/19at 09:12; Start 03/24/19 at 21:00 Budesonide (Pulmicort) 0.5 mg RTBID NEB Last administered on 03/26/19at 07:54; Start 03/24/19 at 20:00 Albuterol/ Ipratropium (Duoneb) 3 ml RTQID NEB Last administered on 03/26/19at 07:54; Start 03/24/19 at 17:00 Cyanocobalamin (Vitamin B-12) 1,000 mcg DAILY PO Last administered on 03/26/19 09:12; Start 03/25/19 at 09:00 Flecainide Acetate (Tambocor) 100 mg Q12HR PO Last administered on 03/25/19 09:35; Start 03/24/19 at 21:00; Stop 03/25/19 at 09:38; Status DC Losartan Potassium (Cozaar) 50 mg DAILY PO Last administered on 03/26/19 09:12; Start 03/25/19 at 09:00 Amlodipine Besylate (Norvasc) 2.5 mg DAILY PO Last administered on 03/26/19 09:12; Start 03/25/19 at 09:00 Warfarin Sodium (Coumadin) 2.5 mg DAILY16 PO Last administered on 03/24/19 18:33; Start 03/24/19 at 17:00; Stop 03/25/19 at 15:06; Status DC Methylprednisolone Sodium Succinate (SOLU-Medrol 40MG VIAL) 40 mg Q12HR IV Last administered on 03/26/19 09:12; Start 03/24/19 at 21:00 Levothyroxine Sodium (Synthroid) 50 mcg DAILY06 PO Last administered on 03/26/19 06:23; Start 03/25/19 at 06:00 Acetaminophen (Tylenol) 650 mg PRN Q6HRS PRN PO MILD PAIN / TEMP; Start 03/24/19 at 16:30 Metoprolol Tartrate (Lopressor) 25 mg BID PO Last administered on 03/26/19 09:12; Start 03/24/19 at 21:00 Ondansetron HCl (Zofran Odt) 4 mg PRN Q6HRS PRN PO NAUSEA/VOMITING; Start 03/24/19 at 16:45 Warfarin Sodium (Coumadin Per Physician) 1 each PRN DAILY PRN MC SEE COMMENTS Last administered on 03/25/19at 10:45; Start 03/24/19 at 17:00; Stop 03/25/19 at 15:06; Status DC Lactobacillus Rhamnosus (Culturelle) 1 cap BID PO Last administered on 03/26/19 09:12; Start 03/25/19 at 21:00 Furosemide (Lasix) 40 mg DAILY IVP Last administered on 03/25/19at 09:35; Start 03/25/19 at 09:30 Potassium Chloride (Klor-Con) 20 meq DAILYWBKFT PO Last administered on 03/25/19at 12:11; Start 03/25/19 at 12:00 Aspirin (Ecotrin) 81 mg DAILYWBKFT PO Last administered on 03/26/19at 09:12; Start 03/25/19 at 16:00 Atorvastatin Calcium (Lipitor) 20 mg QHS PO Last administered on 03/25/19at 21:00; Start 03/25/19 at 21:00 Hydrocortisone (Cortaid) 1 gutierrez PRN BID PRN TP RASH Last administered on 9at 09:12; Start 03/25/19 at 15:45 Active Scripts Active Losartan Potassium 50 Mg Tablet 50 Mg PO DAILY Flecainide Acetate 50 Mg Tablet 100 Mg PO Q12HR Doxycycline Hyclate 100 Mg Tablet 100 Mg PO BID Reported Vitamin B-12 (Cyanocobalamin (Vitamin B-12)) 1,000 Mcg Tablet 1,000 Mcg PO DAILY Synthroid (Levothyroxine Sodium) 50 Mcg Tablet 50 Mcg PO DAILYAC Inderal La (Propranolol Hcl) 80 Mg Cap.sa.24h 1 Cap PO DAILY Warfarin Sodium 3 Mg Tablet 3 Mg PO QODAY Warfarin Sodium 2.5 Mg Tablet 2.5 Mg PO QODAY Amlodipine Besylate 2.5 Mg Tablet 2.5 Mg PO DAILY Vitals/I & O Vital Sign - Last 24 Hours 03/25/19 03/25/19 03/25/19 03/25/19 11:26 14:45 15:41 19:00 Temp 97.8 97.7 97.8 97.7 Pulse 61 62 Resp 24 16 B/P (MAP) 141/69 (93) 151/69 (96) Pulse Ox 96 98 96 95 O2 Delivery Venturi Mask Venturi Mask Nasal Cannula Venturi Mask O2 Flow Rate 2.0 6.0 2.0 6.0 03/25/19 03/25/19 03/25/19 03/25/19 19:55 20:29 21:00 23:00 Temp 97.4 97.4 Pulse 62 64 Resp 16 B/P (MAP) 151/69 157/77 (103) Pulse Ox 96 97 O2 Delivery Nasal Cannula Nasal Cannula Venturi Mask O2 Flow Rate 6.0 2.0 6.0 03/26/19 03/26/19 03/26/19 03/26/19 03:00 07:22 07:56 07:57 Temp 97.5 97.6 97.5 97.6 Pulse 62 59 Resp 20 20 B/P (MAP) 135/60 (85) 165/78 (107) Pulse Ox 97 100 100 100 O2 Delivery Venturi Mask Venturi Mask Nasal Cannula Nasal Cannula O2 Flow Rate 6.0 6.0 2.0 2.0 03/26/19 03/26/19 03/26/19 03/26/19 09:12 09:12 09:12 10:48 Temp 98.1 98.1 Pulse 62 62 63 60 Resp 20 B/P (MAP) 165/78 165/78 165/78 163/64 (97) Pulse Ox 100 O2 Delivery Venturi Mask O2 Flow Rate 6.0 l Intake and Output 03/25/19 03/25/19 03/26/19 14:59 22:59 06:59 Intake Total 900 ml 0 ml Output Total 500 ml 300 ml Balance -500 ml 600 ml 0 ml RAKEL CENTENO MD Mar 26, 2019 11:15
[2019-03-26 14:37] VITALS: BP 171/77
[2019-03-26] MEDS: WARFARIN 2.5 MG TABLET. PO SCH (17:30)
[2019-03-26 19:22] VITALS: BP 169/64
[2019-03-26] MEDS: ATORVASTATIN CALCIUM 20 MG TABLET PO SCH (20:58)
[2019-03-26] MEDS: DOCUSATE SODIUM 100 MG CAPSULE. PO SCH (20:58)
[2019-03-26 22:46] VITALS: BP 155/67
[2019-03-27 03:00] VITALS: BP 141/77
[2019-03-27 04:14] LABS: PROTHROMBIN TIME PATIENT 24.8 SEC (11.7-14.0)
[2019-03-27 04:19] LABS: CALCIUM 9.6 mg/dL (8.5-10.1); CREATININE 1.2 mg/dL (0.6-1.0); GFR 42.3; POTASSIUM 4.7 mmol/L (3.5-5.1)
[2019-03-27 06:47] VITALS: BP 133/63
[2019-03-27] MEDS: LEVOTHYROXINE 50 MCG TABLET PO SCH (07:06)
[2019-03-27] MEDS: BUDESONIDE 0.5 MG/2 ML NEBU. NEB SCH ×2 (07:23→19:53)
[2019-03-27] MEDS: IPRATRPIUM/ALBUTEROL 0.5/2.5MG 3 ML NEBU. NEB SCH ×4 (07:23→19:53)
[2019-03-27] MEDS: DOCUSATE SODIUM 100 MG CAPSULE. PO SCH ×2 (08:55→21:00)
[2019-03-27] MEDS: ASPIRIN ENTERIC COATED 81 MG TABLET.DR. PO SCH (08:55)
[2019-03-27] MEDS: CYANOCOBALAMIN (VITAMIN B-12) 1,000 MCG TABLET. PO SCH (08:55)
[2019-03-27] MEDS: LACTOBACILLUS RHAMNOSUS GG 1 CAPSULE. PO SCH ×2 (08:55→21:05)
[2019-03-27] MEDS: METOPROLOL TART IMMED RELEASE 25 MG TABLET. PO SCH ×2 (08:56→21:05)
[2019-03-27] MEDS: amLODIPine BESYLATE 5 MG TABLET PO SCH (08:56)
[2019-03-27] MEDS: LOSARTAN POTASSIUM 50 MG TABLET. PO SCH (08:57)
[2019-03-27] MEDS ORDERED: methylPREDNISolone SOD SUCC PF 40 MG/ML VIAL. IV SCH (09:00)
[2019-03-27 10:26] VITALS: BP 156/78
--- NOTE | 2019-03-27 11:53 | PDOC ---
PULMONARY PROGRESS NOTES Subjective HISTORY OF PRESENT ILLNESS: The patient is 88 years old who has no significant tobacco history. She was hospitalized and recently discharged after being treated for mycoplasma pneumonia. She has been on doxycycline for about one week. The patient also has history of pulmonary embolism and has been on chronic Coumadin treatment. She has history of Factor V Leiden mutation. She states that she felt better when she went home. However, a few days later, she started to have some shortness of breath. She felt weak as well. She also has a cough, which has been nonproductive. No chest pain, no headache, no nausea, vomiting, no diarrhea. No dysuria, no focal weakness. CT angiogram was performed. The patient has no evidence of pulmonary embolism. There are bilateral pleural effusions, more on the right than on the left. There are interstitial infiltrates, more compatible with congestive heart failure. She had an echocardiogram done as well, which showed a normal ejection fraction and PA pressure of 57. She had an elevated BNP. She continues to feel better with continued diuresis. Her rash is better. Comments PAST MEDICAL HISTORY: Significant for history of recent hospitalization for mycoplasma pneumonia, history of paroxysmal atrial fibrillation with rapid ventricular response, history of pulmonary embolism, is on chronic Coumadin therapy, history of factor V Leiden mutation, hypertension, hypothyroidism, history of Graves' disease, treated with radioactive iodine. PAST SURGICAL HISTORY: Total abdominal hysterectomy, bilateral salpingo-oophorectomy, tonsillectomy, lumbar spondylolysis. SOCIAL HISTORY: Does not smoke and does not drink. FAMILY HISTORY: Mother had COPD. REVIEW OF SYSTEMS: Twelve-point system obtained. Pertinent positives discussed in my history of present illness, otherwise noncontributory. All systems that were negative were reviewed as well. ALLERGIES: PENICILLIN, HEPARIN, LEVOFLOXACIN, AND MORPHINE. Vitals Vital Signs Date Time Temp Pulse Resp B/P (MAP) Pulse Ox O2 Delivery O2 Flow Rate FiO2 03/27/19 11:39 98 Nasal Cannula 2.0 03/27/19 10:26 98.0 59 18 156/78 (104) 98.0 General: Alert, Oriented X4, No acute distress Lungs: Other (bibasilar rales) Cardiovascular: S1 Abdomen: Soft Neuro Exam: Alert, Oriented Extremities: No Edema Skin: Other (truncal macular rash) Labs Current Medications Medications (Trade) Dose Ordered Sig/Vannesa Start Time Stop Time Status Last Admin Dose Admin Acetaminophen (Tylenol) 650 mg PRN Q6HRS PRN 03/24/19 16:30 03/26/19 17:40 650 MG Albuterol/ Ipratropium (Duoneb) 3 ml RTQID 03/24/19 17:00 03/27/19 11:38 3 ML Amlodipine Besylate (Norvasc) 2.5 mg DAILY 03/25/19 09:00 03/27/19 08:58 2.5 MG Aspirin (Ecotrin) 81 mg DAILYWBKFT 03/25/19 16:00 03/27/19 08:58 81 MG Atorvastatin Calcium (Lipitor) 20 mg QHS 03/25/19 21:00 03/26/19 20:59 20 MG Budesonide (Pulmicort) 0.5 mg RTBID 03/24/19 20:00 03/27/19 07:24 0.5 MG Cyanocobalamin (Vitamin B-12) 1,000 mcg DAILY 03/25/19 09:00 03/27/19 08:58 1,000 MCG Docusate Sodium (Colace) 100 mg BID 03/26/19 21:00 03/27/19 08:58 100 MG Doxycycline Hyclate (Vibra-Tab) 100 mg BID 03/24/19 21:00 03/26/19 11:11 DC 03/26/19 09:12 100 MG Flecainide Acetate (Tambocor) 100 mg Q12HR 03/24/19 21:00 03/25/19 09:38 DC 03/25/19 09:35 100 MG Furosemide (Lasix) 40 mg DAILY 03/25/19 09:30 03/26/19 11:11 DC 03/25/19 09:35 40 MG Hydrocortisone (Cortaid) 1 gutierrez PRN BID PRN 03/25/19 15:45 03/26/19 09:12 1 GUTIERREZ Hydroxyzine HCl (Atarax) 10 mg PRN Q6HRS PRN 03/26/19 11:15 Info (CONTRAST GIVEN -- Rx MONITORING) 1 each PRN DAILY PRN 03/24/19 16:00 03/26/19 15:59 DC Iohexol (Omnipaque 350 Mg/ml) 70 ml 1X ONCE 03/24/19 16:00 03/24/19 16:01 DC 03/24/19 16:00 70 ML Lactobacillus Rhamnosus (Culturelle) 1 cap BID 03/25/19 21:00 03/27/19 08:58 1 CAP Levothyroxine Sodium (Synthroid) 50 mcg DAILY06 03/25/19 06:00 03/27/19 07:06 50 MCG Losartan Potassium (Cozaar) 50 mg DAILY 03/25/19 09:00 03/27/19 08:58 50 MG Methylprednisolone Sodium Succinate (SOLU-Medrol 40MG VIAL) 40 mg DAILY 03/27/19 09:00 03/27/19 08:58 40 MG Methylprednisolone Sodium Succinate (SOLU-Medrol 125MG VIAL) 62.5 mg 1X ONCE 03/24/19 14:15 03/24/19 14:16 DC 03/24/19 15:17 62.5 MG Metoprolol Tartrate (Lopressor) 25 mg BID 03/24/19 21:00 03/27/19 08:58 25 MG Ondansetron HCl (Zofran Odt) 4 mg PRN Q6HRS PRN 03/24/19 16:45 Ondansetron HCl (Zofran) 4 mg 1X ONCE 03/24/19 14:15 03/24/19 14:16 DC 03/24/19 15:17 4 MG Potassium Chloride (Klor-Con) 20 meq DAILYWBKFT 03/25/19 12:00 03/26/19 11:11 DC 03/25/19 12:11 20 MEQ Warfarin Sodium (Coumadin Per Physician) 1 each PRN DAILY PRN 03/26/19 11:15 03/26/19 14:53 1 EACH Warfarin Sodium (Coumadin) 2.5 mg DAILY16 03/26/19 16:00 03/26/19 17:40 2.5 MG Laboratory Tests Test 03/26/19 04:00 03/27/19 03:45 Sodium Level 138 mmol/L (136-145) 140 mmol/L (136-145) Potassium Level 4.4 mmol/L (3.5-5.1) 4.7 mmol/L (3.5-5.1) Chloride Level 102 mmol/L (98-107) 106 mmol/L (98-107) Carbon Dioxide Level 28 mmol/L (21-32) 29 mmol/L (21-32) Anion Gap 8 (6-14) 5 (6-14) Blood Urea Nitrogen 39 mg/dL (7-20) 42 mg/dL (7-20) Creatinine 1.4 mg/dL (0.6-1.0) 1.2 mg/dL (0.6-1.0) Estimated GFR (Cockcroft-Gault) 35.4 42.3 Glucose Level 147 mg/dL (70-99) 109 mg/dL (70-99) Calcium Level 9.4 mg/dL (8.5-10.1) 9.6 mg/dL (8.5-10.1) Prothrombin Time 24.8 SEC (11.7-14.0) Prothromb Time International Ratio 2.3 (0.8-1.1) Laboratory Tests Test 03/27/19 03:45 Prothrombin Time 24.8 SEC (11.7-14.0) Prothromb Time International Ratio 2.3 (0.8-1.1) Sodium Level 140 mmol/L (136-145) Potassium Level 4.7 mmol/L (3.5-5.1) Chloride Level 106 mmol/L (98-107) Carbon Dioxide Level 29 mmol/L (21-32) Anion Gap 5 (6-14) Blood Urea Nitrogen 42 mg/dL (7-20) Creatinine 1.2 mg/dL (0.6-1.0) Estimated GFR (Cockcroft-Gault) 42.3 Glucose Level 109 mg/dL (70-99) Calcium Level 9.6 mg/dL (8.5-10.1) Medications Active Scripts Medications Dose Route/Sig Max Daily Dose Days Date Category Losartan Potassium 50 Mg Tablet 50 Mg PO DAILY 03/20/19 Rx Flecainide Acetate 50 Mg Tablet 100 Mg PO Q12HR 03/20/19 Rx Doxycycline Hyclate 100 Mg Tablet 100 Mg PO BID 03/20/19 Rx Vitamin B-12 (Cyanocobalamin (Vitamin B-12)) 1,000 Mcg Tablet 1,000 Mcg PO DAILY 03/18/19 Reported Synthroid (Levothyroxine Sodium) 50 Mcg Tablet 50 Mcg PO DAILYAC 03/18/19 Reported Inderal La (Propranolol Hcl) 80 Mg Cap.sa.24h 1 Cap PO DAILY 03/18/19 Reported Warfarin Sodium 3 Mg Tablet 3 Mg PO QODAY 03/18/19 Reported Warfarin Sodium 2.5 Mg Tablet 2.5 Mg PO QODAY 03/18/19 Reported Amlodipine Besylate 2.5 Mg Tablet 2.5 Mg PO DAILY 03/18/19 Reported Impression . IMPRESSION: 1. Acute hypoxic respiratory failure, secondary to [id number] diastolic heart failure. 2. Abnormal CT chest with bilateral pleural effusions and prominent interstitial markings suggesting congestive heart failure. 3. Recently diagnosed with mycoplasma pneumonia,. 4. History of pulmonary emboli, on warfarin with a therapeutic INR. She has Factor V Leiden mutation. 5. skin rash, improved. suspect doxycyline Plan . RECOMMENDATIONS: 1. Continue with present oxygen with gradual wean to keep saturation 92% to 94%. 2. would keep in negative fluid balance. I agree with Dr. Garcia that lasix unlikely cause of rash 3. steroid taper. 4. hold doxycycline. 5. Warfarin with maintenance of therapeutic INR. 6. Continue present bronchodilators. JAMAL MARS MD Mar 27, 2019 11:53
--- NOTE | 2019-03-27 12:23 | PDOC ---
PROGRESS NOTES Subjective Subjective cough with white sputum. constipated concurs with lactulose today. will start z juve for mycoplasma pneumonia. bp is high and will increase amlodipine Objective Objective Vital Signs Date Time Temp Pulse Resp B/P (MAP) Pulse Ox O2 Delivery O2 Flow Rate FiO2 03/27/19 11:39 98 Nasal Cannula 2.0 03/27/19 10:26 98.0 59 18 156/78 (104) 98.0 Intake and Output 03/27/19 07:00 Intake Total 740 ml Output Total 1450 ml Balance -710 ml Intake Oral 740 ml Output Urine Total 1450 ml Physical Exam Abdomen: Soft Heart: Regular rate, Normal S1, Normal S2 Extremities: No edema General: Alert HEENT: Atraumatic Lungs: Other (few basilar crackles) Neuro: Normal speech Psych/Mental Status: Mental status NL Skin: Other (macular rash fading) Assessment Assessment Problems Acute hypoxic respiratory failure. 2. acute diastolic congestive heart failure. better 3. Mycoplasma pneumoniae. 4. Paroxysmal atrial fibrillation, on Coumadin. 5. History of pulmonary embolus, on Coumadin. 6. Factor V Leiden mutation. 7. 8. Hypertension. drug rash due to doxycycline acute kidney injury due to intravascular volume depletion due to diuretic Medical Problems: (1) Acute exacerbation of CHF (congestive heart failure) Status: Acute (2) Hypertension Status: Chronic (3) Shortness of breath Status: Acute Plan Plan of Care hold lasix due to pre renal azotemia increase amlodipine start zithromax lactulose today try to wean off of oxygen switch to oral prednisone Comment Review of Relevant I have reviewed the following items merly (where applicable) has been applied. Labs Laboratory Tests Test 03/26/19 04:00 03/27/19 03:45 Sodium Level 138 mmol/L (136-145) 140 mmol/L (136-145) Potassium Level 4.4 mmol/L (3.5-5.1) 4.7 mmol/L (3.5-5.1) Chloride Level 102 mmol/L (98-107) 106 mmol/L (98-107) Carbon Dioxide Level 28 mmol/L (21-32) 29 mmol/L (21-32) Anion Gap 8 (6-14) 5 (6-14) Blood Urea Nitrogen 39 mg/dL (7-20) 42 mg/dL (7-20) Creatinine 1.4 mg/dL (0.6-1.0) 1.2 mg/dL (0.6-1.0) Estimated GFR (Cockcroft-Gault) 35.4 42.3 Glucose Level 147 mg/dL (70-99) 109 mg/dL (70-99) Calcium Level 9.4 mg/dL (8.5-10.1) 9.6 mg/dL (8.5-10.1) Prothrombin Time 24.8 SEC (11.7-14.0) Prothromb Time International Ratio 2.3 (0.8-1.1) Laboratory Tests Test 03/27/19 03:45 Prothrombin Time 24.8 SEC (11.7-14.0) Prothromb Time International Ratio 2.3 (0.8-1.1) Sodium Level 140 mmol/L (136-145) Potassium Level 4.7 mmol/L (3.5-5.1) Chloride Level 106 mmol/L (98-107) Carbon Dioxide Level 29 mmol/L (21-32) Anion Gap 5 (6-14) Blood Urea Nitrogen 42 mg/dL (7-20) Creatinine 1.2 mg/dL (0.6-1.0) Estimated GFR (Cockcroft-Gault) 42.3 Glucose Level 109 mg/dL (70-99) Calcium Level 9.6 mg/dL (8.5-10.1) Microbiology 03/24/19 Blood Culture - Preliminary, Resulted NO GROWTH AFTER 2 DAYS Medications Current Medications Albuterol/ Ipratropium (Duoneb) 3 ml 1X ONCE NEB Last administered on 03/24/19at 14:21; Start 03/24/19 at 14:15; Stop 03/24/19 at 14:16; Status DC Methylprednisolone Sodium Succinate (SOLU-Medrol 125MG VIAL) 62.5 mg 1X ONCE IV Last administered on 03/24/19at 15:17; Start 03/24/19 at 14:15; Stop 03/24/19 at 14:16; Status DC Ondansetron HCl (Zofran) 4 mg 1X ONCE IV Last administered on 03/24/19at 15:17; Start 03/24/19 at 14:15; Stop 03/24/19 at 14:16; Status DC Iohexol (Omnipaque 350 Mg/ml) 70 ml 1X ONCE IV Last administered on 03/24/19 16:00; Start 03/24/19 at 16:00; Stop 03/24/19 at 16:01; Status DC Info (CONTRAST GIVEN -- Rx MONITORING) 1 each PRN DAILY PRN MC SEE COMMENTS; Start 03/24/19 at 16:00; Stop 03/26/19 at 15:59; Status DC Furosemide (Lasix) 20 mg 1X ONCE IVP Last administered on 03/24/19 16:26; Start 03/24/19 at 16:00; Stop 03/24/19 at 16:01; Status DC Doxycycline Hyclate (Vibra-Tab) 100 mg BID PO Last administered on 03/26/19 09:12; Start 03/24/19 at 21:00; Stop 03/26/19 at 11:11; Status DC Budesonide (Pulmicort) 0.5 mg RTBID NEB Last administered on 03/27/19 07:24; Start 03/24/19 at 20:00 Albuterol/ Ipratropium (Duoneb) 3 ml RTQID NEB Last administered on 03/27/19at 11:38; Start 03/24/19 at 17:00 Cyanocobalamin (Vitamin B-12) 1,000 mcg DAILY PO Last administered on 03/27/19 08:58; Start 03/25/19 at 09:00 Flecainide Acetate (Tambocor) 100 mg Q12HR PO Last administered on 03/25/19at 09:35; Start 03/24/19 at 21:00; Stop 03/25/19 at 09:38; Status DC Losartan Potassium (Cozaar) 50 mg DAILY PO Last administered on 03/27/19 08:58; Start 03/25/19 at 09:00 Amlodipine Besylate (Norvasc) 2.5 mg DAILY PO Last administered on 03/27/19 08:58; Start 03/25/19 at 09:00 Warfarin Sodium (Coumadin) 2.5 mg DAILY16 PO Last administered on 03/24/19 18:33; Start 03/24/19 at 17:00; Stop 03/25/19 at 15:06; Status DC Methylprednisolone Sodium Succinate (SOLU-Medrol 40MG VIAL) 40 mg Q12HR IV Last administered on 03/26/19 09:12; Start 03/24/19 at 21:00; Stop 03/26/19 at 11:11; Status DC Levothyroxine Sodium (Synthroid) 50 mcg DAILY06 PO Last administered on 03/27/19 07:06; Start 03/25/19 at 06:00 Acetaminophen (Tylenol) 650 mg PRN Q6HRS PRN PO MILD PAIN / TEMP Last administered on 03/26/19 17:40; Start 03/24/19 at 16:30 Metoprolol Tartrate (Lopressor) 25 mg BID PO Last administered on 03/27/19 08:58; Start 03/24/19 at 21:00 Ondansetron HCl (Zofran Odt) 4 mg PRN Q6HRS PRN PO NAUSEA/VOMITING; Start 03/24/19 at 16:45 Warfarin Sodium (Coumadin Per Physician) 1 each PRN DAILY PRN MC SEE COMMENTS Last administered on 03/25/19 10:45; Start 03/24/19 at 17:00; Stop 03/25/19 at 15:06; Status DC Lactobacillus Rhamnosus (Culturelle) 1 cap BID PO Last administered on 03/27/19 08:58; Start 03/25/19 at 21:00 Furosemide (Lasix) 40 mg DAILY IVP Last administered on 03/25/19 09:35; Start 03/25/19 at 09:30; Stop 03/26/19 at 11:11; Status DC Potassium Chloride (Klor-Con) 20 meq DAILYWBKFT PO Last administered on 03/25/19 12:11; Start 03/25/19 at 12:00; Stop 03/26/19 at 11:11; Status DC Aspirin (Ecotrin) 81 mg DAILYWBKFT PO Last administered on 03/27/19 08:58; Start 03/25/19 at 16:00 Atorvastatin Calcium (Lipitor) 20 mg QHS PO Last administered on 03/26/19 20:59; Start 03/25/19 at 21:00 Hydrocortisone (Cortaid) 1 gutierrez PRN BID PRN TP RASH Last administered on 03/26/19 09:12; Start 03/25/19 at 15:45 Methylprednisolone Sodium Succinate (SOLU-Medrol 40MG VIAL) 40 mg DAILY IV Last administered on 03/27/19at 08:58; Start 03/27/19 at 09:00 Hydroxyzine HCl (Atarax) 10 mg PRN Q6HRS PRN PO ITCHING; Start 03/26/19 at 11:15 Warfarin Sodium (Coumadin) 2.5 mg DAILY16 PO Last administered on 03/26/19at 17:40; Start 03/26/19 at 16:00 Warfarin Sodium (Coumadin Per Physician) 1 each PRN DAILY PRN MC SEE COMMENTS Last administered on 03/26/19at 14:53; Start 03/26/19 at 11:15 Docusate Sodium (Colace) 100 mg BID PO Last administered on 03/27/19at 08:58; S tart 03/26/19 at 21:00 Active Scripts Active Losartan Potassium 50 Mg Tablet 50 Mg PO DAILY Flecainide Acetate 50 Mg Tablet 100 Mg PO Q12HR Doxycycline Hyclate 100 Mg Tablet 100 Mg PO BID Reported Vitamin B-12 (Cyanocobalamin (Vitamin B-12)) 1,000 Mcg Tablet 1,000 Mcg PO DAILY Synthroid (Levothyroxine Sodium) 50 Mcg Tablet 50 Mcg PO DAILYAC Inderal La (Propranolol Hcl) 80 Mg Cap.sa.24h 1 Cap PO DAILY Warfarin Sodium 3 Mg Tablet 3 Mg PO QODAY Warfarin Sodium 2.5 Mg Tablet 2.5 Mg PO QODAY Amlodipine Besylate 2.5 Mg Tablet 2.5 Mg PO DAILY Vitals/I & O Vital Sign - Last 24 Hours 03/26/19 03/26/19 03/26/19 03/26/19 14:37 16:53 19:22 20:00 Temp 98.2 97.9 98.2 97.9 Pulse 64 63 Resp 20 15 B/P (MAP) 171/77 (108) 169/64 (99) Pulse Ox 94 100 98 O2 Delivery Venturi Mask Nasal Cannula Nasal Cannula Nasal Cannula O2 Flow Rate 6.0 2.0 3.0 2.0 03/26/19 03/26/19 03/26/19 03/26/19 20:01 20:03 20:59 22:46 Temp 97.6 97.6 Pulse 63 57 Resp 12 B/P (MAP) 169/64 155/67 (96) Pulse Ox 99 100 100 O2 Delivery Nasal Cannula Nasal Cannula Nasal Cannula O2 Flow Rate 2.0 2.0 3.0 03/27/19 03/27/19 03/27/19 03/27/19 03:00 06:47 07:25 07:30 Temp 97.5 97.9 97.5 97.9 Pulse 60 55 Resp 18 18 B/P (MAP) 141/77 (98) 133/63 (86) Pulse Ox 97 98 99 O2 Delivery Nasal Cannula Nasal Cannula Nasal Cannula Nasal Cannula O2 Flow Rate 2.0 2.0 2.0 2.0 03/27/19 03/27/19 03/27/19 03/27/19 08:58 08:58 08:58 10:26 Temp 98.0 98.0 Pulse 64 63 63 59 Resp 18 B/P (MAP) 133/63 133/63 133/63 156/78 (104) Pulse Ox 100 O2 Delivery Nasal Cannula O2 Flow Rate 2.0 03/27/19 11:39 Pulse Ox 98 O2 Delivery Nasal Cannula O2 Flow Rate 2.0 Intake and Output 03/26/19 03/26/19 03/27/19 15:00 23:00 07:00 Intake Total 240 ml 500 ml 0 ml Output Total 600 ml 850 ml Balance 240 ml -100 ml -850 ml RAKEL CENTENO MD Mar 27, 2019 12:23
[2019-03-27] MEDS ORDERED: LACTULOSE 20 GM/30 ML SOLUTION. PO ONE (12:30)
[2019-03-27] MEDS ORDERED: AZITHROMYCIN 250 MG TABLET. PO ONE (13:00)
[2019-03-27 14:37] VITALS: BP 164/85
[2019-03-27] MEDS: WARFARIN 2.5 MG TABLET. PO SCH (15:36)
[2019-03-27 20:35] VITALS: BP 185/81
[2019-03-27] MEDS: ATORVASTATIN CALCIUM 20 MG TABLET PO SCH (21:05)
[2019-03-27 23:00] VITALS: BP 153/70
[2019-03-28 03:30] VITALS: BP 158/72
[2019-03-28] MEDS: HYDROCORTISONE 1% TOPICAL OINTMENT 30GM TUBE. TP PRN (04:07)
[2019-03-28] MEDS: LEVOTHYROXINE 50 MCG TABLET PO SCH (06:02)
[2019-03-28 07:00] VITALS: BP 159/73
[2019-03-28] MEDS: BUDESONIDE 0.5 MG/2 ML NEBU. NEB SCH (07:34)
[2019-03-28] MEDS: ASPIRIN ENTERIC COATED 81 MG TABLET.DR. PO SCH ×2 (07:35→09:16)
[2019-03-28] MEDS: IPRATRPIUM/ALBUTEROL 0.5/2.5MG 3 ML NEBU. NEB SCH ×2 (07:35→11:22)
[2019-03-28 07:45] LABS: BASO % 0 % (0-3); EOS % 0 % (0-3); HEMATOCRIT 37.8 % (36.0-47.0); LYMPH % 24 % (24-48); MEAN CORPUSCULAR HEMOGLOBIN 32 pg (25-35); MEAN CORPUSCULAR HGB CONC 34 g/dL (31-37); MEAN CORPUSCULAR VOLUME 94 fL (79-100); MONO # 0.8 x10^3/uL (0.0-1.1); MONO % 9 % (0-9); NEUT # 5.9 x10^3/uL (1.8-7.7); NEUT % 67 % (31-73); PLATELET COUNT 195 x10^3/uL (140-400); RED BLOOD COUNT 4.02 x10^6/uL (3.50-5.40); RED CELL DISTRIBUTION WIDTH 14.4 % (11.5-14.5); WHITE BLOOD COUNT 8.7 x10^3/uL (4.0-11.0)
[2019-03-28 07:52] LABS: CALCIUM 9.4 mg/dL (8.5-10.1); GFR 52.2; POTASSIUM 4.4 mmol/L (3.5-5.1)
[2019-03-28 08:01] LABS: PROTHROMBIN TIME PATIENT 23.5 SEC (11.7-14.0)
[2019-03-28] MEDS ORDERED: predniSONE 10 MG TABLET PO SCH (09:00)
[2019-03-28] MEDS ORDERED: AZITHROMYCIN 250 MG TABLET. PO SCH (09:00)
[2019-03-28] MEDS ORDERED: amLODIPine BESYLATE 5 MG TABLET PO SCH (09:00)
[2019-03-28] MEDS: LACTOBACILLUS RHAMNOSUS GG 1 CAPSULE. PO SCH (09:15)
[2019-03-28] MEDS: METOPROLOL TART IMMED RELEASE 25 MG TABLET. PO SCH (09:17)
[2019-03-28] MEDS: CYANOCOBALAMIN (VITAMIN B-12) 1,000 MCG TABLET. PO SCH (09:17)
[2019-03-28] MEDS: DOCUSATE SODIUM 100 MG CAPSULE. PO SCH (09:17)
[2019-03-28] MEDS: LOSARTAN POTASSIUM 50 MG TABLET. PO SCH (09:17)
[2019-03-28] MEDS ORDERED: PRED-220 PO (10:37)
[2019-03-28] MEDS ORDERED: AMLO5TAB10 PO (10:37)
[2019-03-28] MEDS ORDERED: AZIT250T6 PO (10:37)
[2019-03-28] MEDS ORDERED: METO25TA4 PO (10:37)
[2019-03-28] MEDS ORDERED: FURO20TA3 PO (10:37)
[2019-03-28] MEDS ORDERED: WARF2.5T83 PO (10:37)
--- NOTE | 2019-03-28 10:40 | SNU/HH DC ---
DISCHARGE WITH HOME HEALTH DISCHARGE INFORMATION: Discharge Date: Mar 28, 2019 Final Diagnosis: Problems Medical Problems: (1) Acute exacerbation of CHF (congestive heart failure) Status: Acute (2) Acute respiratory failure with hypoxia Status: Acute (3) NADIA (acute kidney injury) Status: Acute (4) Hypertension Status: Chronic (5) Shortness of breath Status: Acute Condition on Discharge: Stable CODE STATUS: Code Status: Full HOME HEALTH: Face to Face: I certify this patient is under my care and that I, or a nurse practitioner or physician's academic support assistant working with me, had a face to face encounter that meets the physician face to face encounter requirements with this patient on 03/28/19. RN For Eval/Treatment: Yes Physical Therapy For: Evalulation/Treatment Occupational Therapy For: Evaluation/Treatment Pt Meets Homebound Status: Limited distance walking POST DISCHARGE ORDERS: Activity Instructions for Disc: Resume previous activity, Activity as tolerated DIET AFTER DISCHARGE: Cardiac Wound/Incision Care: No wound care needed CHECKS AFTER DISCHARGE: Checks after discharge: Check blood press - daily FOLLOW-UP: Follow up with: dr. centeno next week Warfarin Follow UP: every thursday and per home health Additional Instructions: fax protime/inr results to dr. centeno fax [phone] CERTIFICATION STATEMENT: Certification Statement: Certification Statement: Based on the above finding, I certify that this patient is confined to the home and needs intermittent longterm care, physical therapy and/or speech therapy, or continues to need occupational therapy.~ This patient is under my care, and I have initiated the establishment of the plan of care.~ This patient will be followed by myself or a community physician who will periodically review the plan of care. Home Meds Active Scripts Furosemide (FUROSEMIDE) 20 Mg Tablet, 0.5 TAB PO mondays and for chf, #30 TAB 1 Refill 10 mg on mondays and Prov:RAKEL CENTENO MD 03/28/19 Prednisone (PREDNISONE ) 10 Mg Tablet, 30 MG PO DAILY for bronchospasm, #9 TAB prednisone 30 mg daily for 3 days then 20 mg daily for 3 days then 10 mg daily foar 3 days Prov:RAKEL CENTENO MD 03/28/19 Amlodipine Besylate (AMLODIPINE BESYLATE) 5 Mg Tablet, 5 MG PO DAILY for hypertension, #30 TAB Prov:RAKEL CENTENO MD 03/28/19 Metoprolol Tartrate (METOPROLOL TARTRATE) 25 Mg Tablet, 25 MG PO BID for atrial fibrillatioin, #60 TAB Prov:RAKEL CENTENO MD 03/28/19 Warfarin Sodium (COUMADIN) 2.5 Mg Tablet, 2.5 MG PO DAILY16 for paroxymal atrial fibrillation., #30 TAB Prov:RAKEL CENTENO MD 03/28/19 Azithromycin (AZITHROMYCIN TABLET) 250 Mg Tablet, 250 MG PO DAILY for mycoplasma pneumonia, #3 TAB Prov:RAKEL CENTENO MD 03/28/19 Losartan Potassium (LOSARTAN POTASSIUM) 50 Mg Tablet, 50 MG PO DAILY for HYPERTENSION, #30 TAB Prov:RAKEL CENTENO MD 03/20/19 Reported Medications Cyanocobalamin (Vitamin B-12) (VITAMIN B-12) 1,000 Mcg Tablet, 1000 MCG PO DAILY for vitamin, TAB 03/18/19 Levothyroxine Sodium (SYNTHROID) 50 Mcg Tablet, 50 MCG PO DAILYAC for THYROID SUPPLEMENT, #30 TAB 0 Refills 03/18/19 Discontinued Reported Medications Propranolol Hcl (INDERAL LA) 80 Mg Cap.sa.24h, 1 CAP PO DAILY for htn, #90 CAP 1 Refill 03/18/19 Warfarin Sodium (WARFARIN SODIUM) 3 Mg Tablet, 3 MG PO QODAY for waef, #30 TAB 03/18/19 Warfarin Sodium (WARFARIN SODIUM) 2.5 Mg Tablet, 2.5 MG PO QODAY for ;lakjsdf, TAB 03/18/19 Amlodipine Besylate (AMLODIPINE BESYLATE) 2.5 Mg Tablet, 2.5 MG PO DAILY for htn, TAB 03/18/19 Discontinued Scripts Flecainide Acetate (FLECAINIDE ACETATE) 50 Mg Tablet, 100 MG PO Q12HR for paroxysmal atrial fibrillation, #60 TAB Prov:RAKEL CENTENO MD 03/20/19 Doxycycline Hyclate (DOXYCYCLINE HYCLATE) 100 Mg Tablet, 100 MG PO BID for mycoplasma pneumonia, #16 TAB Prov:RAKEL CENTENO MD 03/20/19 RAKEL CENTENO MD Mar 28, 2019 10:40
--- NOTE | 2019-03-28 10:46 | PDOC ---
Provider Note Provider Note discharge summary dictated # [id number] RAKEL CENTENO MD Mar 28, 2019 10:46
--- NOTE | 2019-03-28 10:55 | PDOC ---
PULMONARY PROGRESS NOTES Subjective HISTORY OF PRESENT ILLNESS: The patient is 88 years old who has no significant tobacco history. She was hospitalized and recently discharged after being treated for mycoplasma pneumonia. She has been on doxycycline for about one week. The patient also has history of pulmonary embolism and has been on chronic Coumadin treatment. She has history of Factor V Leiden mutation. She states that she felt better when she went home. However, a few days later, she started to have some shortness of breath. She felt weak as well. She also has a cough, which has been nonproductive. No chest pain, no headache, no nausea, vomiting, no diarrhea. No dysuria, no focal weakness. CT angiogram was performed. The patient has no evidence of pulmonary embolism. There are bilateral pleural effusions, more on the right than on the left. There are interstitial infiltrates, more compatible with congestive heart failure. She had an echocardiogram done as well, which showed a normal ejection fraction and PA pressure of 57. She had an elevated BNP. She continues to feel better with continued diuresis. Her rash is better. Comments PAST MEDICAL HISTORY: Significant for history of recent hospitalization for mycoplasma pneumonia, history of paroxysmal atrial fibrillation with rapid ventricular response, history of pulmonary embolism, is on chronic Coumadin therapy, history of factor V Leiden mutation, hypertension, hypothyroidism, history of Graves' disease, treated with radioactive iodine. PAST SURGICAL HISTORY: Total abdominal hysterectomy, bilateral salpingo-oophorectomy, tonsillectomy, lumbar spondylolysis. SOCIAL HISTORY: Does not smoke and does not drink. FAMILY HISTORY: Mother had COPD. REVIEW OF SYSTEMS: Twelve-point system obtained. Pertinent positives discussed in my history of present illness, otherwise noncontributory. All systems that were negative were reviewed as well. ALLERGIES: PENICILLIN, HEPARIN, LEVOFLOXACIN, AND MORPHINE. Vitals Vital Signs Date Time Temp Pulse Resp B/P (MAP) Pulse Ox O2 Delivery O2 Flow Rate FiO2 03/28/19 09:18 59 159/73 03/28/19 08:00 Room Air 03/28/19 07:35 100 03/28/19 07:00 97.6 18 97.6 03/28/19 03:30 3.0 General: Alert, Oriented X4, No acute distress Lungs: Other (bibasilar rales) Cardiovascular: S1 Abdomen: Soft Neuro Exam: Alert, Oriented Extremities: No Edema Skin: Other (truncal macular rash) Labs Laboratory Tests Test 03/27/19 03:45 03/28/19 06:40 Prothrombin Time 24.8 SEC (11.7-14.0) 23.5 SEC (11.7-14.0) Prothromb Time International Ratio 2.3 (0.8-1.1) 2.1 (0.8-1.1) Sodium Level 140 mmol/L (136-145) 142 mmol/L (136-145) Potassium Level 4.7 mmol/L (3.5-5.1) 4.4 mmol/L (3.5-5.1) Chloride Level 106 mmol/L (98-107) 109 mmol/L (98-107) Carbon Dioxide Level 29 mmol/L (21-32) 27 mmol/L (21-32) Anion Gap 5 (6-14) 6 (6-14) Blood Urea Nitrogen 42 mg/dL (7-20) 33 mg/dL (7-20) Creatinine 1.2 mg/dL (0.6-1.0) 1.0 mg/dL (0.6-1.0) Estimated GFR (Cockcroft-Gault) 42.3 52.2 Glucose Level 109 mg/dL (70-99) 83 mg/dL (70-99) Calcium Level 9.6 mg/dL (8.5-10.1) 9.4 mg/dL (8.5-10.1) White Blood Count 8.7 x10^3/uL (4.0-11.0) Red Blood Count 4.02 x10^6/uL (3.50-5.40) Hemoglobin 13.0 g/dL (12.0-15.5) Hematocrit 37.8 % (36.0-47.0) Mean Corpuscular Volume 94 fL (79-100) Mean Corpuscular Hemoglobin 32 pg (25-35) Mean Corpuscular Hemoglobin Concent 34 g/dL (31-37) Red Cell Distribution Width 14.4 % (11.5-14.5) Platelet Count 195 x10^3/uL (140-400) Neutrophils (%) (Auto) 67 % (31-73) Lymphocytes (%) (Auto) 24 % (24-48) Monocytes (%) (Auto) 9 % (0-9) Eosinophils (%) (Auto) 0 % (0-3) Basophils (%) (Auto) 0 % (0-3) Neutrophils # (Auto) 5.9 x10^3/uL (1.8-7.7) Lymphocytes # (Auto) 2.0 x10^3/uL (1.0-4.8) Monocytes # (Auto) 0.8 x10^3/uL (0.0-1.1) Eosinophils # (Auto) 0.0 x10^3/uL (0.0-0.7) Basophils # (Auto) 0.0 x10^3/uL (0.0-0.2) Laboratory Tests Test 03/28/19 06:40 White Blood Count 8.7 x10^3/uL (4.0-11.0) Red Blood Count 4.02 x10^6/uL (3.50-5.40) Hemoglobin 13.0 g/dL (12.0-15.5) Hematocrit 37.8 % (36.0-47.0) Mean Corpuscular Volume 94 fL (79-100) Mean Corpuscular Hemoglobin 32 pg (25-35) Mean Corpuscular Hemoglobin Concent 34 g/dL (31-37) Red Cell Distribution Width 14.4 % (11.5-14.5) Platelet Count 195 x10^3/uL (140-400) Neutrophils (%) (Auto) 67 % (31-73) Lymphocytes (%) (Auto) 24 % (24-48) Monocytes (%) (Auto) 9 % (0-9) Eosinophils (%) (Auto) 0 % (0-3) Basophils (%) (Auto) 0 % (0-3) Neutrophils # (Auto) 5.9 x10^3/uL (1.8-7.7) Lymphocytes # (Auto) 2.0 x10^3/uL (1.0-4.8) Monocytes # (Auto) 0.8 x10^3/uL (0.0-1.1) Eosinophils # (Auto) 0.0 x10^3/uL (0.0-0.7) Basophils # (Auto) 0.0 x10^3/uL (0.0-0.2) Prothrombin Time 23.5 SEC (11.7-14.0) Prothromb Time International Ratio 2.1 (0.8-1.1) Sodium Level 142 mmol/L (136-145) Potassium Level 4.4 mmol/L (3.5-5.1) Chloride Level 109 mmol/L (98-107) Carbon Dioxide Level 27 mmol/L (21-32) Anion Gap 6 (6-14) Blood Urea Nitrogen 33 mg/dL (7-20) Creatinine 1.0 mg/dL (0.6-1.0) Estimated GFR (Cockcroft-Gault) 52.2 Glucose Level 83 mg/dL (70-99) Calcium Level 9.4 mg/dL (8.5-10.1) Medications Active Scripts Medications Dose Route/Sig Max Daily Dose Days Date Category Losartan Potassium 50 Mg Tablet 50 Mg PO DAILY 03/20/19 Rx Flecainide Acetate 50 Mg Tablet 100 Mg PO Q12HR 03/20/19 Rx Doxycycline Hyclate 100 Mg Tablet 100 Mg PO BID 03/20/19 Rx Vitamin B-12 (Cyanocobalamin (Vitamin B-12)) 1,000 Mcg Tablet 1,000 Mcg PO DAILY 03/18/19 Reported Synthroid (Levothyroxine Sodium) 50 Mcg Tablet 50 Mcg PO DAILYAC 03/18/19 Reported Inderal La (Propranolol Hcl) 80 Mg Cap.sa.24h 1 Cap PO DAILY 03/18/19 Reported Warfarin Sodium 3 Mg Tablet 3 Mg PO QODAY 03/18/19 Reported Warfarin Sodium 2.5 Mg Tablet 2.5 Mg PO QODAY 03/18/19 Reported Amlodipine Besylate 2.5 Mg Tablet 2.5 Mg PO DAILY 03/18/19 Reported Impression . IMPRESSION: 1. Acute hypoxic respiratory failure, secondary to lywav-ak-dyxlahl diastolic heart failure. 2. Abnormal CT chest with bilateral pleural effusions and prominent interstitial markings suggesting congestive heart failure. 3. Recently diagnosed with mycoplasma pneumonia,. 4. History of pulmonary emboli, on warfarin with a therapeutic INR. She has Factor V Leiden mutation. 5. skin rash, improved. suspect doxycyline Plan . RECOMMENDATIONS: 1. Continue with present oxygen with gradual wean to keep saturation 92% to 94%. 2. would keep in negative fluid balance. 3. steroid taper. 5. Warfarin with maintenance of therapeutic INR. 6. Continue present bronchodilators. ok with AIDA Palma MD Mar 28, 2019 10:55
--- NOTE | 2019-03-28 10:57 | DS ---
DATE OF DISCHARGE: 03/28/2019 CONSULTANTS: Dr. Garcia and Dr. Flores. FINAL DIAGNOSES: 1. Acute hypoxic respiratory failure, resolved. 2. Acute diastolic congestive heart failure, compensated. 3. Mycoplasma pneumonia. 4. Paroxysmal atrial fibrillation, on Coumadin. 5. History of pulmonary embolus, on Coumadin. 6. Factor V Leiden mutation, on Coumadin. 7. Hypertension. 8. Drug rash secondary to doxycycline. 9. Acute kidney injury secondary to intravascular volume depletion due to diuretic, improved. HOSPITAL COURSE: The patient is an 88-year-old white female recently dismissed from [facility] 03/20/2019 with paroxysmal atrial fibrillation with intermittent rapid ventricular response, converted to normal sinus rhythm and mycoplasma pneumonia. She was treated with doxycycline and also she continued her Coumadin and was started on flecainide. The patient was admitted to the hospital with shortness of breath and wheezing. A chest x-ray was consistent with congestive heart failure. CAT scan and chest angiogram ruled out a pulmonary embolus and was consistent with congestive heart failure, seen in consultation by Dr. Flores for Pulmonary and Dr. Garcia for Cardiology. Doxycycline was discontinued. She developed a rash, which improved off of it and then she was started on Zithromax. She received IV Solu-Medrol and then was switched to prednisone and she was breathing well without any wheezing. She received physical therapy for debility. Her INR was 2.1 today. Coumadin was changed to 2.5 mg every day Coumadin, amlodipine was increased to 5 mg every day as propranolol was discontinued and she was treated with metoprolol tartrate 25 mg b.i.d. and furosemide will be started at 10 mg p.o. every Thursday and as her renal function has improved. Today, the BUN was 33 with a creatinine of 1.0. The BUN did increase to 42 and creatinine 1.2 on 03/27 and diuretics were held, but will be resumed starting this . The patient did have an echocardiogram done and it showed that her left ventricular ejection fraction was 55-60%. She had mild tricuspid regurgitation and pulmonary hypertension with pulmonary artery pressure of 57, left ventricular function was normal. She, therefore, will be dismissed to home on prednisone 30 mg every day for 3 days, 20 mg every day for 3 days, 10 mg every day for 3 days, then she will stop it, Zithromax 250 mg every day for 3 days to complete a 5-day course of Zithromax, metoprolol tartrate 25 mg b.i.d., amlodipine was increased to 5 mg every day, furosemide will be just 10 mg on Mondays and . She did have a protime INR every Thursday and by home health with results faxed to Dr. Ferrer. Target INR is 2-3. Also be dismissed on Coumadin as mentioned 2.5 mg every day, losartan 50 mg every day, levothyroxine 50 mcg every day, vitamin B12 1000 mcg every day. She is off the flecainide and off the propranolol. She will make an appointment to see Dr. Ferrer in the office next week. She will be dismissed to home with home health with physical and occupational therapy. RAKEL FERRER MD DR: ZAIRA/roldan JOB#: [id number] / [id number]
[2019-03-28 11:00] VITALS: BP 159/68
--- NOTE | 2019-03-28 11:59 | NUR ---
SS following for discharge planning. SS reviewed pt's chart. Pt is from home and is currently on room air. Discharge orders on the chart for home healthcare. PT/OT recommended halfway unit. SS met with pt and daughter in room to discuss discharge planning and halfway unit. Pt and pt's daughter declined halfway unit. SS discussed home healthcare with pt and pt's daughter. Both were agreeable to home healthcare with no preference of company. Nurse navigator to meet with pt. SS phoned and faxed discharge orders and referral to [facility], ; fax [phone]. Pt's RN notified.
--- NOTE | 2019-03-28 14:22 | NUR ---
Discharge Note: RAINE MORA ROSELAND Discharge instructions and discharge home medications reviewed with Patient and Daughter Abbie and a copy given. All questions have been answered and understanding verbalized. The following instructions and handouts were given: HF, SOA Discontinued lines and drains: Peripheral IV intact. Patient discharged to Home w/services with Family Member via Wheelchair
--- NOTE | 2019-03-28 14:24 | PDOC ---
PROGRESS NOTES Subjective Subjective Feeling better. Wants to go home. Objective Objective Vital Signs Date Time Temp Pulse Resp B/P (MAP) Pulse Ox O2 Delivery O2 Flow Rate FiO2 03/28/19 11:23 100 Room Air 03/28/19 11:00 97.5 56 18 159/68 (98) 97.5 03/28/19 03:30 3.0 Intake and Output 03/28/19 07:00 Intake Total 1280 ml Output Total 700 ml Balance 580 ml Intake Oral 1280 ml Output Urine Total 700 ml # Voids 1 # Bowel Movements 1 Physical Exam Abdomen: Soft Heart: Regular rate, Normal S1, Normal S2 Extremities: No edema General: Alert HEENT: Atraumatic Lungs: Other (few basilar crackles) MUSCULOSKELETAL: Osteoarthritic changes both hands Neuro: Normal speech Psych/Mental Status: Mental status NL Skin: Other (macular rash fading) Assessment Assessment 1. Acute on chronic diastolic CHF: Much better compensated. Continue current medical regimen. Since patient had recurrent CHF and coronary artery calcifications, the option of cardiac catheterization was discussed. She would like to hold off on this for now and consider it at a later date. 2. Recent Atypical PNA 3. 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 PAFIB: Presently in sinus rhythm. Patient off flecainide due to intolerance and prolonged QTc. Continue Coumadin. 5. HTN: controlled Follow-up with our office in 1 month. Plan Plan of Care Problems Medical Problems: (1) Acute exacerbation of CHF (congestive heart failure) Status: Acute (2) Acute respiratory failure with hypoxia Status: Acute (3) NADIA (acute kidney injury) Status: Acute (4) Hypertension Status: Chronic (5) Shortness of breath Status: Acute Comment Review of Relevant I have reviewed the following items merly (where applicable) has been applied. Labs Laboratory Tests Test 03/28/19 06:40 White Blood Count 8.7 x10^3/uL (4.0-11.0) Red Blood Count 4.02 x10^6/uL (3.50-5.40) Hemoglobin 13.0 g/dL (12.0-15.5) Hematocrit 37.8 % (36.0-47.0) Mean Corpuscular Volume 94 fL (79-100) Mean Corpuscular Hemoglobin 32 pg (25-35) Mean Corpuscular Hemoglobin Concent 34 g/dL (31-37) Red Cell Distribution Width 14.4 % (11.5-14.5) Platelet Count 195 x10^3/uL (140-400) Neutrophils (%) (Auto) 67 % (31-73) Lymphocytes (%) (Auto) 24 % (24-48) Monocytes (%) (Auto) 9 % (0-9) Eosinophils (%) (Auto) 0 % (0-3) Basophils (%) (Auto) 0 % (0-3) Neutrophils # (Auto) 5.9 x10^3/uL (1.8-7.7) Lymphocytes # (Auto) 2.0 x10^3/uL (1.0-4.8) Monocytes # (Auto) 0.8 x10^3/uL (0.0-1.1) Eosinophils # (Auto) 0.0 x10^3/uL (0.0-0.7) Basophils # (Auto) 0.0 x10^3/uL (0.0-0.2) Prothrombin Time 23.5 SEC (11.7-14.0) Prothromb Time International Ratio 2.1 (0.8-1.1) Sodium Level 142 mmol/L (136-145) Potassium Level 4.4 mmol/L (3.5-5.1) Chloride Level 109 mmol/L (98-107) Carbon Dioxide Level 27 mmol/L (21-32) Anion Gap 6 (6-14) Blood Urea Nitrogen 33 mg/dL (7-20) Creatinine 1.0 mg/dL (0.6-1.0) Estimated GFR (Cockcroft-Gault) 52.2 Glucose Level 83 mg/dL (70-99) Calcium Level 9.4 mg/dL (8.5-10.1) Microbiology 03/24/19 Blood Culture - Preliminary, Resulted NO GROWTH AFTER 3 DAYS Medications Current Medications Amlodipine Besylate (Norvasc) 5 mg DAILY PO Last administered on 03/28/19at 09:16; Start 03/28/19 at 09:00 Azithromycin (Zithromax) 250 mg DAILY PO Last administered on 03/28/19at 09:18; Start 03/28/19 at 09:00 Furosemide (Lasix) 10 mg MoTh PO ; Start 03/31/19 at 06:00 Prednisone (Prednisone) 30 mg DAILY PO Last administered on 03/28/19at 09:16; Start 03/28/19 at 09:00 Vitals/I & O Vital Sign - Last 24 Hours 03/27/19 03/27/19 03/27/19 03/27/19 14:37 15:47 19:00 19:51 Temp 97.5 97.5 Pulse 60 85 Resp 18 B/P (MAP) 164/85 (111) Pulse Ox 99 98 O2 Delivery Nasal Cannula Nasal Cannula Nasal Cannula O2 Flow Rate 2.0 2.0 2.0 03/27/19 03/27/19 03/27/19 03/27/19 19:55 20:35 21:05 23:00 Temp 97.9 97.9 97.9 97.9 Pulse 60 60 63 Resp 20 18 B/P (MAP) 185/81 (115) 185/81 153/70 (97) Pulse Ox 96 93 98 O2 Delivery Room Air Nasal Cannula Nasal Cannula O2 Flow Rate 3.0 3.0 03/28/19 03/28/19 03/28/19 03/28/19 03:30 07:00 07:35 08:00 Temp 97.8 97.6 97.8 97.6 Pulse 54 61 Resp 18 18 B/P (MAP) 158/72 (100) 159/73 (101) Pulse Ox 100 100 100 O2 Delivery Nasal Cannula Room Air Room Air Room Air O2 Flow Rate 3.0 03/28/19 03/28/19 03/28/19 03/28/19 09:16 09:18 09:18 11:00 Temp 97.5 97.5 Pulse 59 60 59 56 Resp 18 B/P (MAP) 159/73 159/73 159/73 159/68 (98) Pulse Ox 100 O2 Delivery Room Air 03/28/19 11:23 Pulse Ox 100 O2 Delivery Room Air Intake and Output 03/27/19 03/27/19 03/28/19 15:00 23:00 07:00 Intake Total 480 ml 500 ml 300 ml Output Total 700 ml Balance 480 ml -200 ml 300 ml STAN CORNELIUS MD Mar 28, 2019 14:24
[2019-03-31] MEDS ORDERED: FUROSEMIDE 20 MG TABLET PO SCH (06:00)
== END 2019-03-28 14:20 | disposition home health service (06) | DRG 291 ==
LOC: ER 13:48 → 2 NORTH 15:58
PROVIDERS: ADMIT Internal Medicine; ATTEND Internal Medicine
DX: I11.0 Hypertensive heart disease with heart failure (principal); J96.01 Acute respiratory failure with hypoxia; N17.9 Acute kidney failure, unspecified; D68.51 Activated protein C resistance; I50.43 Acute on chronic combined systolic (congestive) and diastolic (congestive) heart failure; E03.9 Hypothyroidism, unspecified; E78.5 Hyperlipidemia, unspecified; I25.10 Atherosclerotic heart disease of native coronary artery without angina pectoris; I45.81 Long QT syndrome; I48.0 Paroxysmal atrial fibrillation; K59.00 Constipation, unspecified; G43.909 Migraine, unspecified, not intractable, without status migrainosus; K57.90 Diverticulosis of intestine, part unspecified, without perforation or abscess without bleeding; L27.0 Generalized skin eruption due to drugs and medicaments taken internally; T36.4X5A Adverse effect of tetracyclines, initial encounter; T50.2X5A Adverse effect of carbonic-anhydrase inhibitors, benzothiadiazides and other diuretics, initial encounter; Z79.01 Long term (current) use of anticoagulants; Z82.49 Family history of ischemic heart disease and other diseases of the circulatory system; Z82.5 Family history of asthma and other chronic lower respiratory diseases; Z86.711 Personal history of pulmonary embolism; Z90.710 Acquired absence of both cervix and uterus; Z88.0 Allergy status to penicillin; Z88.8 Allergy status to other drugs, medicaments and biological substances
CPT/HCPCS: 36415; 36600; 71045; 71275; 80048; 80053; 80061; 81001; 82805; 83605; 83735; 83880; 84484; 85025; 85379; 85610; 85730; 87040; 93005; 93308; 94618; 94640; 96374; 96375; J1940; J2405; J2920; J2930; J7512; J7620; J7626; Q0144; Q9967; 97110; 97116; 97530; 97535; 99285-25; G0378